=== PATIENT | male | born 1945 | race Caucasian/White ===

== ENCOUNTER 2024-08-12 13:54 | Outpatient (REF) | payer MEDICARE, OTHER, SELFPAY | END 2024-08-12 13:55 | disposition home or self-care (01) | LOC: HO.HOSX 13:54 | PROVIDERS: Visit Provider Orthopaedic Surgery | DX: Z13.89 Encounter for screening for other disorder (principal) ==

== ENCOUNTER 2024-09-03 09:55 | Outpatient (REF) | payer MEDICARE, OTHER, SELFPAY ==
--- NOTE | ~2024-09-03 | XR_ITS ---
EXAMINATION: XR KNEE RIGHT 3 VIEWS CLINICAL INFORMATION: Pain in right knee M25.561. COMPARISON: None available TECHNIQUE: Three views of the right knee. FINDINGS: No fracture or dislocation. No suprapatellar joint effusion. There is severe narrowing of the lateral joint space height with mild to moderate narrowing of the medial joint space height. Patellofemoral joint space is relatively well maintained. Small tricompartmental marginal osteophytes. No localized soft tissue swelling. No radiopaque foreign body. XR/XR knee RT 3V IMPRESSION: Moderate degenerative changes of the right knee, most prominent within the lateral compartment. Electronically signed by: Vern Hi MD 10/15/2024 09:53 AM EST
== END 2024-09-03 09:56 | disposition home or self-care (01) ==
LOC: HO.HOSX 09:55
PROVIDERS: Visit Provider Orthopaedic Surgery
DX: M25.561 Pain in right knee (principal); M17.11 Unilateral primary osteoarthritis, right knee
CPT/HCPCS: 20610; 73562; 99202; J1010; J2003

== ENCOUNTER 2024-09-03 13:48 | Outpatient (AMB) | payer MEDICARE, OTHER, SELFPAY ==
--- NOTE | 2024-09-03 14:13 | MHC.OFFVIS ---
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 Patient states he's right knee has been bothering him for about 4 months. Patient states pain is worse on the lateral aspect of the right knee. Denies numbness or tingling. He shares it is hard to go up or down the stairs. Patient states he had a right knee injection in May but is unsure on what he was given. He has tried braces, Voltaren, and Tylenol for pain with relief. Denies prior injuries or surgeries to the right knee. 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 While in the office today, the patient reports ongoing right knee pain, which has been bothering him for the past 4 months. The quality of pain is worse on the lateral aspect of the right knee. He mentions difficulty ambulating up and down the stairs. He denies numbness or tingling sensation. He previously had a right knee injection in May 2024 but was unsure what type injection he had. He has tried braces, Voltaren, and Tylenol for pain relief. He denies any prior injuries or surgeries to the right knee. [facility] Social History (Updated 09/03/24 @ 14:20 by MINNIE Hines) Current occupational status: retired Current occupation: rt handed Review of Systems Const All systems reviewed & are unremarkable except as noted in HPI and below Physical Exam Vital Signs: BMI result Body Mass Index 24.9 Const General: cooperative and no acute distress Orientation/consciousness: patient oriented x3 Resp Effort & Inspection: normal respiratory effort and able to speak in complete sentences Cardio Peripheral pulses: Peripheral pulses 2+ throughout Skin General skin exam: no rashes or lesions noted Neuro General: patient oriented x3 Extrem Other: Right knee: Normal to inspection. No ecchymosis, erythema, or joint effusion. No tenderness to palpation along the medial or lateral joint lines. Full knee extension and flexion. Crepitus is felt with ROM. NVI. Office Procedures AMB Joint Injection/Aspiration Joint Injection/Aspiration Primary Site: right knee Prep: site was prepped using aseptic technique, ethochloride spray was applied and injection warnings given Injected: 80 mg of, DepoMedrol, with 8 mL of (2% plain lido ) and in the joint Approach Used: anterolateral Procedure: The patient tolerated the procedure well, but had some pain with the injection and there was some relief with the local anesthesia Coding 24243 - Large joint Procedure code (CPT) selection complete Assessment & Plan Assessment & Plan (1) Osteoarthritis of right knee: Code(s): M17.11 - Unilateral primary osteoarthritis, right knee Category: Medical Plan Mr. Hart is a 79-year-old female who presents in the office today, as a new patient, for a right knee osteoarthritis. While in the office today, the patient reports ongoing right knee pain which has been bothering him for the past 4 months. The quality of pain is worse on the lateral aspect of the right knee. He mentions difficulty ambulating up and down the stairs. He denies numbness or tingling sensation. He previously had a right knee injection in May 2024 but was unsure what type injection he had. He has tried braces, Voltaren and Tylenol for pain with relief. He denies any prior injuries or surgeries to the right knee. The patient was offered a cortisone injection in the right knee with 80 mg of Depo-Medrol. The patient was explained the risks, benefits, and alternatives to receiving this injection. After receiving consent for the injection, the patient had the procedure done while in the office today. The patient tolerated the procedure well with no complication. Follow up will be PRN, or sooner if needed. X-rays of the right knee, which were obtained while in the office today and were reviewed by me, Renee Altman PA-C, revealed: Osteoarthritis. Orders: Orders XR knee RT 3V 09/03/24 M25.561 - Pain in right knee XR knee RT 3V 09/03/24 M25.561 - Pain in right knee Patient Instructions: Scribed by Jeanie Weiss, vice president medical affairs, for Renee Altman PA-C on 09/02/24 at 2:40 pm EST. Coding Level of Care Code New Pt Level 4 (19284) Diagnoses Osteoarthritis of right knee M17.11 CPT Codes Coding - 71921 Large joint: 45280 - Large joint ([id number])
[2024-09-03 14:15] VITALS: BMI 24.9
== END 2024-09-03 15:39 | disposition home or self-care (01) ==
PROVIDERS: PCP Hospitalist; Visit Provider Physician Assistant
DX: M17.11 Unilateral primary osteoarthritis, right knee (principal)
CPT/HCPCS: 20610; 99204

== ENCOUNTER 2025-02-11 11:11 | Outpatient (AMB) | payer MEDICARE, OTHER, SELFPAY ==
--- NOTE | 2025-02-11 11:19 | MHC.OFFVIS ---
Vital Signs 02/11/25 11:20 Height 5 ft 8 in Weight 164 lb BMI 24.9 Intake Visit Reasons: inj-right knee injection-09/03/24 Intake Note: Josep is a 80 year old male who presents with complaints of progressively worsening right knee pain. The patient describes his pain as sharp in nature. His pain has gotten worse over the last year in spite of continued non operative treatments. He did have a cortisone injection given into his right knee last year. The injection gave him minimal relief. He has failed the last 3 months of conservative treatment which have included a home exercise program, physical therapy exercises, Tylenol, topical creams and a knee brace. The patient is not able to take anti-inflammatory medicines because he is on Eliquis. At this point his right knee pain is interfering with his activities of daily living and his ability to sleep well through the night. He wishes to hold off on total knee replacement surgery for as long as possible. Allergies No Known Allergies Allergy (Verified 02/11/25 11:20) Medication List - Last Reconciled 02/11/25 by Tee Mak MD apixaban (Eliquis) 5 mg PO BID atorvastatin 40 mg PO DAILY carvedilol 12.5 mg PO BID cholecalciferol (vitamin D3) (Vitamin D3) 50 mcg PO DAILY diclofenac sodium 1% 2 grams topical QID latanoprost 0.005% drps ophthalmic (eye) lisinopril 20 mg PO DAILY timolol maleate 0.5% drps ophthalmic (eye) [facility] Social History (Updated 09/03/24 @ 14:20 by MINNIE Hines) Current occupational status: retired Current occupation: rt handed Physical Exam Vital Signs: BMI result Body Mass Index 24.9 Const Other: Well-nourished well-developed very friendly male awake alert and oriented x3 in no acute distress Extrem Other: Bilateral lower extremity examination shows good capillary refill, no skin lesions noted, normal sensation light touch Right knee examination shows a minimal effusion, palpable crepitus with range of motion, pain with range of motion, no instability Results Reviewed Results Reviewed: X-rays of the patient's right knee show joint space narrowing, subchondral sclerosis, no acute bony abnormalities Assessment & Plan Assessment & Plan (1) Osteoarthritis of right knee: Code(s): M17.11 - Unilateral primary osteoarthritis, right knee Category: Medical Plan Mr. Hart presents with progressively worsening right knee pain due to osteoarthritis. I had a lengthy discussion with the patient regarding the treatment options. Wishes to hold off on total knee replacement surgery for as long as possible. I agree with this plan. I will see whether or not his insurance company will cover a viscosupplementation injection such as Durolane. I will see him back once the injection is available. Feel free to call me at any time should questions regarding his orthopedic management arise. Thank you very much for asking me to see this very friendly gentleman. I spent 21 minutes in reviewing the patient's records and imaging studies, seeing the patient and documenting in the medical record. Coding Level of Care Code New Pt Level 3 (07743) Complex EM visit Add On G2211 Diagnoses Osteoarthritis of right knee M17.11
[2025-02-11 11:20] VITALS: BMI 24.9
--- OUTSIDE RECORDS SUMMARY | 2025-02-11 13:34 | XMS_ITS | Clinical Summary ---
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 Role Phone Unavailable Primary Care Provider Unavailabl e Social History Tobacco Use Types Packs/Day Years Used Date Smoking Tobacco: Never Assessed Sex and Gender Information Value Date Recorded Sex Assigned at Not on file Legal Sex Male 10:20 AM EST Gender Identity Not on file Sexual Orientation Not on file Plan of Treatment Health Maintenance Due Date Last Done Comments DTaP,Tdap,and Td Vaccines (1 - Tdap) 1964 Pneumococcal Vaccine: 50+ Years (1 of 1 - PCV) 01/23/1996 Zoster Vaccines (1 of 2) 01/23/1996 RSV Immunization Adult Patients (1 - 1-dose 75+ series) 2021 Cholesterol Screening (Lipid Panel) 10/07/2022 Depression Screening 10/07/2022 Falls Risk Assessment 10/07/2022 Hepatitis C Screening 10/07/2022 Social Influencers of Health Screening 10/07/2022 Medicare Annual Wellness Visit 05/13/2024 05/13/2023 COVID-19 Vaccine ( - 2023-2 5 season) 2024 Influenza Vaccine (#1) 2024 2, 08/17/2020 HIB Vaccines Aged Out No longer eligi ble based on patient's age to complete this topic HPV Vaccines Aged Out No longer eligi ble based on patient's age to complete this topic Hepatitis A Vaccines Aged Out No long er eligible based on patient's age to complete this topic Hepatitis B Vaccines Aged Out No long er eligible based on patient's age to complete this topic IPV Vaccines Aged Out No longer eligi ble based on patient's age to complete this topic MMR Vaccines Aged Out No longer eligi ble based on patient's age to complete this topic Meningococcal ACWY Vaccine Aged Out N o longer eligible based on patient's age to complete this topic Meningococcal B Vaccine Aged Out No l onger eligible based on patient's age to complete this topic RSV Immunization Patients Under 20 months Aged Out No longer eligible b ased on patient's age to complete this topic Varicella Vaccines Aged Out No longer eligible based on patient's age to complete this topic
--- OUTSIDE RECORDS SUMMARY | 2025-02-11 13:34 | XMS_ITS ---
Author Organization [facility] Address [address] [place] [address] Care Team Providers Care Head Tennis Professional Name Role Phone RAHEEL ANAYA Primary Care Provider Allergies No Known Allergies REASON FOR VISIT 6 month f/u Medications Medication SIG (Take, Route, Frequency, Duration) Notes Start Date End Date Status Amoxicillin 500 MG 1 capsule Orally every 8 hrs for 7 days 11/05/2024 Active Multi For Him Not-Ta kayode Lisinopril 20 MG 1 tablet Orally Once a day for 30 day(s) 02/05/2018 Active Timolol Maleate 0.5 % 1 drop into affected eye Ophthalmic Once a day 02/05/2018 Active Eliquis 5 MG as directed Orally 1 tablet twice a day 01/03/2021 Active Vitamin D3 50 MCG (1999) TAKE 1 CAPSULE BY MOUTH EVERY DAY for 90 Active Atorvastatin Calcium 40 MG 1 tablet Orally Once a day Active Ensure - as directed Orally One can daily Active Carvedilol 12.5 MG 1 tablet Orally twice daily 02/05/2018 Active Latanoprost 0.005 % 1 drop into affected eye in the evening Ophthalmic Once a day 02/05/2018 Active Social History Tobacco Use: Social History Observation Description Date Details (start date - stop date) Never Smoker NA - NA Tobacco Use/Smoking Question Answer Notes Are you a nonsmoker Alcohol Screen (Audit-C) Question Answer Notes Did you have a drink contain ing alcohol in the past year? Yes How often did you have a dri nk containing alcohol in the past year? 2 to 3 times a week (3 points) How many drinks did you have on a typical day when you were drinking in the past year? 1 or 2 drinks (0 point) Points 3 Interpretation Negative Vital Signs Temperature 96.3 degrees Fahrenheit 11/20/19 25 Oximetry 95 % 11/20/2024 Heart Rate 68 /min 11/20/2024 Blood pressure systolic 134 mm Hg 11/20/19 25 Blood pressure diastolic 84 mm Hg 025 Weight 168.7 lbs 11/20/2024 BMI 25.65 kg/m2 11/20/2024 Height 5'8 in 11/20/2024 Encounters Encounter Location Date Provider Diagnosis [facility] [address] [place] [address] 11/20/2024 RAHEEL ANAYA Cardiomyopathy, unspecified I42.9 ; Essential (primary) hypertension I10 ; Unspecified atrial fibrillation I48.91 and Mixed hyperlipidemia E78.2 Assessments Encounter Date Diagnosis (ICD Code) Assessment Notes Treatment Notes Treatment Clinical Notes Section Notes 11/20/2024 Cardiomyopathy, unspecified (ICD-10 - I42.9) 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 Plan is as follows Cardiomyopathy. He stable at this point and he is on beta-kellie and statins. His weight is stable. Atrial fibrillation. He is rate controlled and currently on Eliquis 5 mg 1 tablet twice a day Hyperlipidemia/hy pertension. Blood pressure well controlled on Coreg 12.5 mg twice a day and he is on Lipitor 40 mg daily. Glaucoma. Stable on current regimen and follow up with automotive glass specialist Right knee joint pain. 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 Plan is as follows Cardiomyopathy. He stable at this point and he is on beta-kellie and statins. His weight is stable. Atrial fibrillation. He is rate controlled and currently on Eliquis 5 mg 1 tablet twice a day Hyperlipidemia/hy pertension. Blood pressure well controlled on Coreg 12.5 mg twice a day and he is on Lipitor 40 mg daily. Glaucoma. Stable on current regimen and follow up with automotive glass specialist Right knee joint pain. 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 Plan is as follows Cardiomyopathy. He stable at this point and he is on beta-kellie and statins. His weight is stable. Atrial fibrillation. He is rate controlled and currently on Eliquis 5 mg 1 tablet twice a day Hyperlipidemia/hy pertension. Blood pressure well controlled on Coreg 12.5 mg twice a day and he is on Lipitor 40 mg daily. Glaucoma. Stable on current regimen and follow up with automotive glass specialist Right knee joint pain. 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 Plan is as follows Cardiomyopathy. He stable at this point and he is on beta-kellie and statins. His weight is stable. Atrial fibrillation. He is rate controlled and currently on Eliquis 5 mg 1 tablet twice a day Hyperlipidemia/hy pertension. Blood pressure well controlled on Coreg 12.5 mg twice a day and he is on Lipitor 40 mg daily. Glaucoma. Stable on current regimen and follow up with automotive glass specialist Right knee joint pain. Osteoarthritis and follow-up with orthopedic Screening blood work before next appointment Plan Of Treatment Medication Medication Name Sig Start Date Stop Date Notes Vitamin D3 50 MCG (1999) TAKE 1 CAPSU LE BY MOUTH EVERY DAY for 90 Future Test Test Name Order Date Albumin/Creatinine Ratio,Urine-[id number] Lipid Panel-[id number] 11/20/2024 Comp. Metabolic Panel ([id number] 2024 Next Appt Details Follow Up: 6 Months- Tammy JARRELL son: Provider Name:RAHEEL ANAYA , 05/28/2025 10:00:00 AM, [address] [place] [address], [id number], Progress Notes * Josep HUIZARDOB:1944 (79 yo M)Acc No.[id number]:11/20/2024 Progress Notes Patient:?Josep HUIZAR Provider:?RAHEEL ANAYA MD :1945???Age:79 Y???Sex:Male Mamadou e:11/20/2024 Address:[address] , [id number] Subjective: * Chief Complaints: * ???6 month f/u * HPI: ???Internal Medicine:?Mr. Huizar is a 79-year-old gentleman with cardiomyopathy and f/u with Dr. Jarquin at [facility], hypertension, atrial fibrillation, hearing loss on hearing aids and glaucoma here for? 6 months follow-up.? He is in his usual state of health.? He recently saw his warping machine operator and no change in medications.? He complains of right knee joint pain and he is going to follow-up with orthopedic.? He is physically active and does not complain of any exertional chest pain or pressure or shortness of breath.? There is no anxiety or depression.? He sleeps reasonably well.? No or GI issues.? No other complaints today. * ROS:?General/Constitutional:?Overall health?Good.?Change in appetite?denies.?Chills?denies.?Fever?denies.?Night sweats?denies.?Sleep disturbance?denies.?Weight gain?denies.?Weight loss?admits, 6?pounds.?Neurologic:?Difficulty speaking?denies.?Dizziness?denies.?Gait abnormality?denies.?Headache?denies.?Loss of strength?denies.?Memory loss?denies.?Seizures?denies.?Tingling/Numbness?denies.?Ophthalmologic:?Blurred vision?denies.?Discharge?denies.?Dry eye?denies.?Red eye?denies.?ENT:?Change in Voice?Denies.?Cold Symptoms?Denies.?Cough?Denies.?Dizziness?Denies.?Nasal Congestion?, Denies.?Otalgia?Denies.?postnasal drip?Denies.?Blocked ear?denies.?Nosebleed?denies.?Snoring?denies.?Cardiovascular:?Diaphoresis?Denies.?Pedal Edema?Denies.?PND (Paroxsymal nocturnal dyspnea)?Denies.?Chest pain?denies.?Difficulty laying flat?denies.?Dyspnea on exertion?denies.?Heart murmur?denies.?Orthopnea?denies.?Respiratory:?Snoring?denies.?Asthma?denies.?Cough?denies.?Shortness of breath with exertion?denies.?Sputum production?denies.?Wheezing?denies.?Gastrointestinal:?Change in bowel habits?denies.?Constipation?denies.?Decreased appetite?denies.?Diarrhea?denies.?Heartburn?denies.?Nausea?denies.?Vomiting?ashli es.?Musculoskeletal:?tingling/numbness?Denies.?myalgias?Denies.?Joint Swelling?Denies.?extremeties?normal.?Arthritis?denies.?Back problems?denies.?Carpal tunnel?denies.?Joint stiffness?denies.?Muscle aches?denies.?Endocrine:?Bowel Changes?Denies.?Breast Discharge?Denies.?poor libido?Denies.?Cold intolerance?denies.?Excessive sweating?denies.?Excessive thirst?denies.?Frequent urination?denies.?Thyroid problems?denies.?Skin:?Bruising?Denies.?Eczema?denies.?Hair changes?denies.?Rash?denies.?Skin lesion(s)?denies.?Psychiatric:?Anxiety?denies.?Depressed mood?denies.?Difficulty sleeping?denies.?Nervous breakdown?denies.?Substance abuse?denies.?Urology:?abnormal menstrual bleeding?denies.?blood in urine?denies.?burning on urination?denies.?difficulty urinating?denies.?discharge?denies.?dysuria?denies.? * Medical History:? * Surgical History:?bilateral cataract surgery by Dr. Alvarez 12/2021 * Hospitalization/Major Diagno stic Procedure:? * Family History:?Father: dece ased, Parkinsons, diagnosed with Hypertension, Heart Disease.?Mother: .?Paternal uncle: diagnosed with Heart Disease.?Siblings: diagnosed with Hypertension.? * Social History:?Tobacco Use:?Tobacco Use/Smoking?Are you a?nonsmoker ???Drugs/Alcohol:?Drugs?Have you used drugs other than those for medical reasons in the past 12 months??No ?Alcohol Screen (Audit-C)?Did you have a drink containing alcohol in the past year??Yes ?How often did you have a drink containing alcohol in the past year??2 to 3 times a week (3 points) ?How many drinks did you have on a typical day when you were drinking in the past year??1 or 2 drinks (0 point) ?Points?3 ?Interpretation?Negative ???Miscellaneous:?Exercise: Patient exercises. ?Marital status: . ?Occupation: Retired. * Medications:?TakingAtorvasta tin Calcium 40 MG Tablet 1 tablet Orally Once a day Ensure - Liquid as directed Orally , Notes to Pharmacist: One can dailyCarvedilol 12.5 MG Tablet 1 tablet Orally twice daily Latanoprost 0.005 % Solution 1 drop into affected eye in the evening Ophthalmic Once a day Lisinopril 20 MG Tablet 1 tablet Orally Once a day Timolol Maleate 0.5 % Solution 1 drop into affected eye Ophthalmic Once a day Eliquis 5 MG Tablet as directed Orally 1 tablet twice a day Vitamin D3 50 MCG (1999 [place]) Capsule TAKE 1 CAPSULE BY MOUTH EVERY DAY Amoxicillin 500 MG Capsule 1 capsule Orally every 8 hrs Taking Atorvastatin Calcium 40 MG Tablet 1 tablet Orally Once a day Taking Ensure - Liquid as directed Orally , Notes to Pharmacist: One can dailyTaking Carvedilol 12.5 MG Tablet 1 tablet Orally twice daily Taking Latanoprost 0.005 % Solution 1 drop into affected eye in the evening Ophthalmic Once a day Taking Lisinopril 20 MG Tablet 1 tablet Orally Once a day Taking Timolol Maleate 0.5 % Solution 1 drop into affected eye Ophthalmic Once a day Taking Eliquis 5 MG Tablet as directed Orally 1 tablet twice a day Taking Vitamin D3 50 MCG (2000 [place]) Capsule TAKE 1 CAPSULE BY MOUTH EVERY DAY Taking Amoxicillin 500 MG Capsule 1 capsule Orally every 8 hrs Not-TakingMulti For Him Medication List reviewed and reconciled with the patientNot-Taking Multi For Him Medication List reviewed and reconciled with the patient * Allergies:?N.K.D.A.no[Allerg ies Verified] Objective: * Vitals:?Temp: 96.3 F, Oxygen sat %: 95 %, HR: 68 /min, BP: 134/84 mm Hg, Wt: 168.7 lbs, BMI: 25.65 Index, Ht: 5'8 . * ???Past Orders: ???Lab:COMPREHENSIVE METABOL IC PANEL (Order Date - 05/13/2024) (Collection Date & Time - 05/13/2024 08:46 AM) ? Value Reference Range ?ALBUMIN 3.8 3.2-5.0 - G/ dL ?ALK PHOS 106 42-121 - U/ L ?SGPT 36 10-60 - U/L ?ANION GAP 5 3-11 - ?SGOT 24 10-42 - U/L ?BILI,TOTAL 1.2 0.0-1.4 - mg/dL ?BUN 20 5-25 - mg/dL ?CALCIUM 9.2 8.5-10.5 - m g/dL ?CHLORIDE 107 96-110 - mm ol/L ?CO2 28 21-32 - mmol/L ?CREAT 0.78 0.7-1.3 - mg/d L ?GLOMERULAR FILTRATION RATE 91 >60 - ?GLUCOSE 90 70-100 - mg/ dL ?POTASSIUM 4.4 3.5-5.5 - mmol/L ?SODIUM 140 135-145 - mEq /L ?TOTAL PROTEIN 6.7 6.0-8. 0 - G/dL ???Lab:GLYCOHEMOGLOBIN PROFI LE (Order Date - 05/13/2024) (Collection Date & Time - 05/13/2024 08:46 AM) ? Value Reference Range ?ESTIMATED AVERAGE GLUCOSE 117 - mg/dL ?GLYCATED HEMOGLOBIN A1C 5.7 <6.5 - % ???Lab:LIPID PROFILE (Order Date - 05/13/2024) (Collection Date & Time - 05/13/2024 08:46 AM) ? Value Reference Range ?CHOLESTEROL 123 0-200 - mg/dL ?HDL CHOLESTEROL 62 >40 - mg/dL ?LDL CALCULATED 53 0-100 - mg/dL ?TC-HDLC RATIO 2.0 0-4.4 - mg/dL ?TRIGLYCERIDES 42 0-150 - mg/dL ???Lab:MICROALB/CREAT RATIO, RANDOM (Order Date - 05/13/2024) (Collection Date & Time - 05/13/2024 08:46 AM) ? Value Reference Range ?CREATININE, RANDOM URINE 137 - mg/dL ?MICROALB/CRE RATIO RANDOM 8.7 0.0-30.0 - mg/G ?MICROALBUMIN, RANDOM 12.0 0.0-29.0 - mg/L ???Lab:B-TYPE NATRIURETIC PE PTIDE (Order Date - 09/05/2023) (Collection Date & Time - 09/05/2023 08:26 AM) ? Value Reference Range ?B-TYPE NATRIURETIC PEPTIDE 80 <100 - pg/mL * Examination: ???General Examination: ?Psychiatry?Normal.?GENERAL APPEARANCE:?Well developed, well nourished, in no acute distress.?MUSCULOSKELETAL:?kyphosis, decreased range of motion of right knee on flexion, crepitus positive, decreased ROM flexion, extension.?HEAD:?Normocephalic, atraumatic.?EYES:?Pupils equal, round, reactive to light and accommodation, sclera non-icteric.?EARS:?Normal.?ORAL CAVITY:?Normal.?THROAT:?Clear.?OROPHARYNX?Normal.?SINUSES?Normal .?NECK/THYROID:?Neck supple, full range of motion, no cervical lymphadenopathy.?SKIN:?Warm and dry, no suspicious lesions.?HEART:?irregularly irregular,,grade 1/6 systolic murmur at left sternal border.?LUNGS:?clear to auscultation bilaterally, no wheezes, rales, rhonchi.?BREASTS:?__.?ABDOMEN:?Soft, nontender, nondistended, bowel sounds present, normal.?EXTREMITIES:?Normal.?PERIPHERAL PULSES:?Normal.?NEUROLOGIC:?Nonfocal,? appropriate?motor strength normal upper and lower extremities, sensory exam intact.?FEMALE GENITOURINARY:?__.?MALE GENITOURINARY:?__.?PODIATRIC:?Normal.?Records Coordinator? .? Assessment: * Assessment: 1.?Cardiomyopathy, unspecifi ed - I42.9 (Primary)???2.?Essential (primary) hypertension - I10???3.?Unspecified atrial fibrillation - I48.91???4.?Mixed hyperlipidemia - E78.2??? 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 Plan is as follows Cardiomyopathy.? He stable at this point and he is on beta-kellie and statins.? His weight is stable. Atrial fibrillation.? He is rate controlled and currently on Eliquis 5 mg 1 tablet twice a day Hyperlipidemia/hypertension.? Blood pressure well controlled on Coreg 12.5 mg twice a day and he is on Lipitor 40 mg daily. Glaucoma.? Stable on current regimen and follow up with automotive glass specialist Right knee joint pain.? Osteoarthritis and follow-up with orthopedic Screening blood work before next appointment Plan: * Treatment: 2.?Others? Refill Vitamin D3 Capsule, 50 MCG (1999), TAKE 1 CAPSULE BY MOUTH EVERY DAY, 90, 90 Capsule, Refills 3.?? * Procedure Codes:?[id number] Compl ex e/m visit add [id number] ACP DISCUSS/DSCN MKR [id number] BMI<30 AND >=22 CALC & [id number] NEG SCR D PT NOT ELIG F/U/PLN [id number] ELDER MALTX SCR DOC NEG NO F/U [id number] Pt scrn tbco and id as [id number] MOST RECENT SYSTOLIC BP < 140MM [id number] MOST RECENT DIASTOLIC BP < 90MM [id number] NORMAL BP READING DOC F/U NOT RQR * Follow Up:?6 Months- AW * * Sign off status: Completed true * Provider:?RAHEEL ANAYA MD Date:?11/20 Generated for Brian mccormick/Mckenna/eTransmitting on:?02/11/2025 01:34 PM EDT History and Physical Notes * HPI (History of Present Illness) Category Sub-Category Detail Notes Category Not es Internal Medicine Mr. Alex marsh is a 79-year-old gentleman with cardiomyopathy and f/u with Dr. Jarquin at [facility], hypertension, atrial fibrillation, hearing loss on hearing aids and glaucoma here for 6 months follow-up. He is in his usual state of health. He recently saw his warping machine operator and no change in medications. He complains of right knee joint pain and he is going to follow-up with orthopedic. He is physically active and does not complain of any exertional chest pain or pressure or shortness of breath. There is no anxiety or depression. He sleeps reasonably well. No or GI issues. No other complaints today Examination Category Sub-Category Detail Notes Category Not es General Examination GENERAL APPEARANCE: Well dev eloped, well nourished, in no acute distress HEAD: Normocephalic, atrau matic EYES: Pupils equal, round, reactive to light and accommodation, sclera non-icteric EARS: Normal THROAT: Clear NECK/THYROID: Neck supple, full ra nge of motion, no cervical lymphadenopathy HEART: irregularly irregula r, , grade 1/6 systolic murmur at left sternal border LUNGS: clear to auscultatio n bilaterally, no wheezes, rales, rhonchi ABDOMEN: Soft, nontender, non distended, bowel sounds present, normal NEUROLOGIC: Nonfocal, appropriat e motor strength normal upper and lower extremities, sensory exam intact SKIN: Warm and dry, no arleen picious lesions EXTREMITIES: Normal PERIPHERAL PULSES: Normal BREASTS: __ MUSCULOSKELETAL: kyphosis, decreased range of motion of right knee on flexion, crepitus positive, decreased ROM flexion, extension MALE GENITOURINARY: __ FEMALE GENITOURINARY: __ ORAL CAVITY: Normal PODIATRIC: Normal Psychiatry Normal OROPHARYNX Normal SINUSES Normal Records Coordinator
--- OUTSIDE RECORDS SUMMARY | 2025-02-11 13:34 | XMS_ITS | Data Portability ---
Author Organization [place] - [facility], Allergy Address [address] [place] [address] Care Team Providers Care Environmental Engineering Intern Name Role Phone RAHEEL ANAYA Primary Care Provider Assessment No assessment recorded. Plan of Treatment Reminders Order Date Submit Date Provider Last Modified By Organization Details Last Modified Time Details Appointments Establish ed 15 2024 10:00A M PRISCILA MCCLURE PA-C Not available Not available Not available Lab None recorded. Referral None recorded. Procedures None recorded. Surgeries None recorded. Imaging None recorded. Medication Orders None recorded. Patient TargetsNo targets recorded. Patient InstructionsNo instructions recorded. Reason for Referral None Reported. Problems Name Problem SNOMED Code Status Onset Date Resolution Date Notes Provider Name and Address Organization Details Recorded Time Otorrhagi a of bilateral ears 25541638913 [id number] Active 2022 Otorrhagi a, bilateral ; Note: Date Diagnosed : 09/07/2023 9:46 AM (H92.23) Not Available [facility] 02:55:23 Abrasion of skin of right ear [id number] 681214 Active 2015 Abrasion of right ear, initial encounter ; Note: Date Diagnosed : 03/25/2016 11:04 AM (S00.411A ) Not Available [facility] 02:55:19 Impacted cerumen of bilateral ears 18802781003 60797 Active 2023 TOD PAVON MD [address] [facility],[place] [address], [place], [address] , [place] [facility] 09:09:22 Problem Notes None recorded. Procedures Surgical History Date Name Laterality Status Provider Name and Address Organization Details Recorded Time extraction of cataract completed TOD PAVON MD [address] [facility],[address], [address], [facility] 09/11/2024 09:41:02 hernia repair completed [facility] [place],[address], [address], [place] [facility] 09/11/2024 09:41:07 Appendectomy completed TOD PAVON MD [address] [facility],[address], [address], [facility] 09/11/2024 09:41:14 Imaging Results None recorded. Procedure Notes None recorded. Medical Equipment None Reported. Allergies No known drug allergies Medications Name Sig Start Date Stop Date Status Note LastModified by Organization Details LastModified Time latanopro st 0.005 % eye drops INSTILL 1 DROP INTO BOTH EYES IN THE EVENING active Not Available Not Available No t Available atorvasta tin 40 mg tablet TAKE 1 TABLET BY MOUTH EVERY DAY active Not Available Not Available No t Available carvedilo l 12.5 mg tablet TAKE 1 TABLET BY MOUTH TWICE A DAY active Not Available Not Available No t Available lisinopri l 20 mg tablet TAKE 1 TABLET BY MOUTH EVERY DAY active Not Available Not Available No t Available warfarin 2.5 mg tablet 09/11 completed Medicati on ID: [id number] D uration Value: 90 Brand Name: warfarin Send Method: E-Prescr ibed Sub s Allowed: subs OK Speci al Instruct ion: TAKE 3 TABLETS BY MOUTH FOR 5 DAYS/WEE K AND 2 TABLETS 1 DAY/WEEK . *1 D AY/WEEK NO DOSE TO BE TAKEN* M edicatio nGeneric Name: warfarin Not Available Not Available Not Available Ciloxan 0.3 % eye drops 09/11 completed Medicati on ID: [id number] D uration Value: 5 Prescri bed By Name: Tod fonseca MD Brand Name: Ciloxan Send Method: E-Prescr ibed Sub s Allowed: subs OK Speci al Instruct ion: Instill 4 drops twice a day into the affected ear Medi cationGe nericNam e: Ciloxan Not Available Not Available Not Available ofloxacin 0.3 % ear drops Apply 5 drop into both ears twice a day 09/11 completed Medicati on ID: [id number] D uration Value: 7 Brand Name: ofloxaci n Send Method: E-Prescr ibed Sub s Allowed: subs OK Medic ationGen ericName : ofloxaci n Not Available Not Available Not Available timolol maleate 0.5 % eye drops INSTILL 1 DROP INTO BOTH EYES ONCE A DAY active Not Available Not Available No t Available lisinopri l 40 mg tablet 09/11 completed Medicati on ID: [id number] D uration Value: 90 Brand Name: lisinopr il Send Method: E-Prescr ibed Sub s Allowed: subs OK Speci al Instruct ion: TAKE 1 TABLET BY MOUTH EVERY DAY Medi cationGe nericNam e: lisinopr il Not Available Not Available Not Available Vitamin D3 50 mcg (2,000 unit) capsule TAKE 1 CAPSULE BY MOUTH EVERY DAY active Not Available Not Available No t Available Eliquis 5 mg tablet TAKE 1 TABLET BY MOUTH TWICE A DAY active Not Available Not Available No t Available Paxlovid 300 mg (150 mg x 2)-100 mg tablets in a dose pack TAKE 3 TABLETS BY MOUTH TWICE A DAY FOR 5 DAYS 09/11 completed Not Available Not Available Not Available Vitals Date Recorded Body height Body mass index (BMI) Body weight Provider Name and Address Organization Details Last Updated DateTime 09/11/2024 172.72 cm 24.8 kg/m2 81234.56 g Leandra Doe [place] - [facility] 09/11/2024 08:55:59 Social History None recorded. Functional Status None recorded. Mental Status None recorded. Family History Nothing Reported Notes:Problems with anesthes ia: negative. Cancer:. ? Pertinent negatives: lung cancer, thyroid cancer, unknown type of cancer. Ears: Hearing loss after age 20 - father and sister(s). Cardiovascular: Heart disease in a male, diagnosed at unknown age - father. Heart disease in a female, diagnosed at unknown age - mother. Hypertension - father and brother(s). Respiratory:. ? Pertinent negatives: asthma. Neurologic:. ? Pertinent negatives: stroke. Endocrine:. ? Pertinent negatives: diabetes (age at onset unspecified). Hematologic/Lymphatic:. ? Pertinent negatives: bleeding or blood clotting problems. Medical History Condition Response Arthritis Y Hypertension Y Glaucoma Y Past Encounters Encounter ID Performer Location Encounter Start Date Encounter Closed Date Diagnosis/Indication Diagnosis SNOMED-CT Code Diagnosis ICD10 Code Diagnosis Note [id number] TOD PAVON MD [facility] [address] [address] 09/11/2024 08:49:31 09/11/2024 09:12:46 Impacted cerumen of bilateral ears [id number] 625366 H61.23 Cerumen removed bilaterall y and tolerated well. Follow-up in a year. Health Concerns Section Related Observation LastModified by Organization Detai ls LastModified Time None Recorded Concern Status LastModified by Organization Details LastModified Time None Recorded Advance Directives Directive None Recorded Payers Encounter Date Sequence Insurance Name Policy Number Policy Saha Covered Member ID Saha Member ID Guarantor Name 09/11/2024 1 [place]IC[place] [employer] Josep Hart [id number] Josep Hart 09/11/2024 2 [facility] INDEMNITY PLAN (MEDICARE SUPPLEMENT) [id number] Marichuy Hart [id number] Josep Hart Notes Date Note Type Note Provider Name and Address Organization Details Recorded Time 09/11/2024 text/html 79-year-old male presents today for follow-up. He was seen about a year ago after traumatic ear cleaning. He has done well since then. He does not feel any particular blockage. He does wear amplification for his severe hearing loss. Since his last visit, he did have a injection for some arthritis in his knee. TOD PAVON MD [address] [place] [address], [phone], [facility] - [facility] 09/11/2024 09:42:09
--- OUTSIDE RECORDS SUMMARY | 2025-02-11 13:34 | XMS_ITS ---
Author Organization [facility] Address [address] [facility] [place] [address] Care Team Providers Care Rod Piler Name Role Phone RAHEEL ANAYA Primary Care Provider Juan Munguia Unavailable [phone] Allergies No Known Allergies REASON FOR VISIT ? Sinus infection Medications Medication SIG (Take, Route, Frequency, Duration) Notes Start Date End Date Status Lisinopril 20 MG 1 tablet Orally Once a day for 30 day(s) 02/05/2018 Active Vitamin D3 50 MCG (1999) TAKE 1 CAPSULE BY MOUTH EVERY DAY for 90 Active Eliquis 5 MG as directed Orally 1 tablet twice a day 01/03/2021 Active Timolol Maleate 0.5 % 1 drop into affected eye Ophthalmic Once a day 02/05/2018 Active Latanoprost 0.005 % 1 drop into affected eye in the evening Ophthalmic Once a day 02/05/2018 Active Amoxicillin 500 MG 1 capsule Orally every 8 hrs for 7 days 11/05/2024 Active Carvedilol 12.5 MG 1 tablet Orally twice daily 02/05/2018 Active Ensure - as directed Orally One can daily Active Atorvastatin Calcium 40 MG 1 tablet Orally Once a day Active Multi For Him Cody-Andrea headley Vital Signs Temperature 97.3 degrees Fahrenheit 11/05/19 25 Oximetry 96 % 11/05/2024 Heart Rate 90 /min 11/05/2024 Blood pressure systolic 124 mm Hg 11/05/19 25 Blood pressure diastolic 70 mm Hg 025 Weight 167.7 lbs 11/05/2024 BMI 25.5 kg/m2 11/05/2024 Height 5'8 in 11/05/2024 Encounters Encounter Location Date Provider Diagnosis [facility] [address] [address] 11/05/2024 Juan Munguia Acute sinusitis, unspecified J01.90 Assessments Encounter Date Diagnosis (ICD Code) Assessment Notes Treatment Notes Treatment Clinical Notes Section Notes 11/05/2024 Acute sinusitis, unspecified (ICD-10 - J01.90) Mr. Huizar is a 79-year-old gentleman with cardiomyopathy and f/u with Dr. Jarquin at [facility], hypertension, atrial fibrillation, hearing loss on hearing aids and glaucoma here for sinus infections sxs. Plan as follows: Acute Sinusitis: - Worsening sxs over the course of 7 days. He admits to nasal congestion/purule nt mucus. PE is remarkable for tenderness along the maxillary sinuses. Lungs CTAB. I will start patient on amoxicillin. 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 Instead advised on Tylenol for pain, Normal saline, hydration. I have rendered the services for this patient under direct supervision of Dr. Anaya, who did not see the patient but was available upon request Plan Of Treatment Medication Medication Name Sig Start Date Stop Date Notes Amoxicillin 500 MG 1 capsule Orally every 8 hrs for 7 days 11/05/2024 Next Appt Details Follow Up: next appt, Reason : Provider Name:RAHEEL ANAYA , 05/28/2025 10:00:00 AM, [address] [facility] [address], [place], [address], Progress Notes * Josep HUIZARDOB:1944 (79 yo M)Acc No.[id number]:11/05/2024 Patient:?Josep HUIZAR Provider:?Juan Munguia :1945???Age:79 Y???Sex:Male Mamadou e:11/05/2024 Address:[address] [id number] Pcp:RAHEEL ANAYA Subjective: * Chief Complaints: * ? Sinus infection * HPI: ???Internal Medicine:?Mr. Huizar is a 79-year-old gentleman with cardiomyopathy and f/u with Dr. Jarquin at [facility], hypertension, atrial fibrillation, hearing loss on hearing aids and glaucoma here for sinus infections sxs. He states that his symptoms have been worsening for the past week. He has tried OTC with no improvement. He admits to facial pain, nasal congestion with purulent runny nose. He denies fever, chills, ear pain, dysphagia, odynophagia.He denies any active issues. * ROS:?General/Constitutional:?Overall health?Good.?Change in appetite?denies.?Chills?denies.?Fever?denies.?Night sweats?denies.?Sleep disturbance?denies.?Weight gain?denies.?Weight loss?admits, 6?pounds.?Neurologic:?Difficulty speaking?denies.?Dizziness?denies.?Gait abnormality?denies.?Headache?denies.?Loss of strength?denies.?Memory loss?denies.?Seizures?denies.?Tingling/Numbness?denies.?Ophthalmologic:?Blurred vision?denies.?Discharge?denies.?Dry eye?denies.?Red eye?denies.?ENT:?Change in Voice?Denies.?Cold Symptoms?Denies.?Cough?Denies.?Dizziness?Denies.?Nasal Congestion?Admits.?Otalgia?Denies.?postnasal drip?Denies.?Patient complaining of?worsening facial pain.?Blocked ear?denies.?Nosebleed?denies.?Snoring?denies.?Cardiovascular:?Diaphoresis?Denies.?Pedal Edema?Denies.?PND (Paroxsymal nocturnal dyspnea)?Denies.?Chest pain?denies.?Difficulty laying flat?denies.?Dyspnea on exertion?denies.?Heart murmur?denies.?Orthopnea?denies.?Respiratory:?Snoring?denies.?Asthma?denies.?Cough?denies.?Shortness of breath with exertion?denies.?Sputum production?denies.?Wheezing?denies.?Gastrointestinal:?Change in bowel habits?denies.?Constipation?denies.?Decreased appetite?denies.?Diarrhea?denies.?Heartburn?denies.?Nausea?denies.?Vomiting?ashli es.?Musculoskeletal:?tingling/numbness?Denies.?myalgias?Denies.?Joint Swelling?Denies.?extremeties?normal.?Arthritis?denies.?Back problems?denies.?Carpal tunnel?denies.?Joint stiffness?denies.?Muscle aches?denies.?Endocrine:?Bowel Changes?Denies.?Breast Discharge?Denies.?poor libido?Denies.?Cold intolerance?denies.?Excessive sweating?denies.?Excessive thirst?denies.?Frequent urination?denies.?Thyroid problems?denies.?Skin:?Bruising?Denies.?Eczema?denies.?Hair changes?denies.?Rash?denies.?Skin lesion(s)?denies.?Psychiatric:?Anxiety?denies.?Depressed mood?denies.?Difficulty sleeping?denies.?Nervous breakdown?denies.?Substance abuse?denies.?Urology:?abnormal menstrual bleeding?denies.?blood in urine?denies.?burning on urination?denies.?difficulty urinating?denies.?discharge?denies.?dysuria?denies.? * Medical History:? * Medications:?TakingAtorvasta tin Calcium 40 MG Tablet [...] 1 CAPSULE BY MOUTH EVERY DAY Taking Atorvastatin Calcium 40 MG Tablet 1 [...] a day Taking Vitamin D3 50 MCG (1999 [place]) Capsule TAKE 1 CAPSULE BY MOUTH EVERY DAY Not-TakingMulti For Him Not-Taking Multi For Him DiscontinuedPaxlovid (300/100) 20 x 150 MG & 10 x 100MG Tablet Therapy Pack 3 tablets Orally Twice a day Medication List reviewed and reconciled with the patientDiscontinued Paxlovid (300/100) 20 x 150 MG & 10 x 100MG Tablet Therapy Pack 3 tablets Orally Twice a day Medication List reviewed and reconciled with the patient * Allergies:?N.K.D.A.no[Allerg ies Verified] Objective: * Vitals:?Temp: 97.3 F, Oxygen sat %: 96 %, HR: 90 /min, BP: 138/78 mm Hg, 124/70 mm Hg, Wt: 167.7 lbs, BMI: 25.5 Index, Ht: 5'8 . * Examination: ???General Examination: ?Psychiatry?Normal.?GENERAL APPEARANCE:?Well developed, well nourished, in no acute distress.?MUSCULOSKELETAL:?kyphosis, decreased range of motion of right knee on flexion, crepitus positive, decreased ROM flexion, extension.?HEAD:?Normocephalic, atraumatic.?EYES:?Pupils equal, round, reactive to light and accommodation, sclera non-icteric.?EARS:?Normal.?ORAL CAVITY:?Normal.?THROAT:?Clear.?OROPHARYNX?Normal.?SINUSES?tender to palpate around the maxillary sinuses.?NECK/THYROID:?Neck supple, full range of motion, no cervical lymphadenopathy.?SKIN:?Warm and dry, no suspicious lesions.?HEART:?irregularly irregular,,grade 1/6 systolic murmur at left sternal border.?LUNGS:?clear to auscultation bilaterally, no wheezes, rales, rhonchi.?BREASTS:?__.?ABDOMEN:?Soft, nontender, nondistended, bowel sounds present, normal.?EXTREMITIES:?Normal.?PERIPHERAL PULSES:?Normal.?NEUROLOGIC:?Nonfocal,? appropriate?motor strength normal upper and lower extremities, sensory exam intact.?FEMALE GENITOURINARY:?__.?MALE GENITOURINARY:?__.?PODIATRIC:?Normal.?Dental Cream Maker? .? Assessment: * Assessment: 1.?Acute sinusitis, unspecif ied - J01.90 (Primary)??? Mr. Huizar is a 79-year-old gentleman with cardiomyopathy and f/u with Dr. Jarquin at [facility], hypertension, atrial fibrillation, hearing loss on hearing aids and glaucoma here for sinus infections sxs. Plan as follows: Acute Sinusitis: - Worsening sxs over the course of 7 days. He admits to nasal congestion/purulent mucus. PE is remarkable for tenderness along the maxillary sinuses. Lungs CTAB. I will start patient on amoxicillin. 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 Instead advised on Tylenol for pain, Normal saline, hydration. I have rendered the services for this patient under direct supervision of Dr. Anaya, who did not see the patient but was available upon request Plan: * Treatment: * Procedure Codes:? * Follow Up:?next appt * * Sign off status: Completed true * Provider:?Juan Munguia Date:?11/05/19 25 Generated for Brian mccormick/Mckenna/Demetris on:?02/11/2025 01:34 PM EDT History and Physical Notes * HPI (History of Present Illness) Category Sub-Category Detail Notes Category Not es Internal Medicine Mr. Alex marsh is a 79-year-old gentleman with cardiomyopathy and f/u with Dr. Jarquin at [facility], hypertension, atrial fibrillation, hearing loss on hearing aids and glaucoma here for sinus infections sxs. He states that his symptoms have been worsening for the past week. He has tried OTC with no improvement. He admits to facial pain, nasal congestion with purulent runny nose. He denies fever, chills, ear pain, dysphagia, odynophagia.He denies any active issues. Examination Category Sub-Category Detail Notes Category Not [...] PODIATRIC: Normal Psychiatry Normal OROPHARYNX Normal SINUSES tender to palpate ar ound the maxillary sinuses Dental Cream Maker
--- OUTSIDE RECORDS SUMMARY | 2025-02-11 13:34 | XMS_ITS ---
Author Organization [facility] Address [address] [facility] [address] [place] [address] Care Team Providers Care Shell Press Operator Name Role Phone RAHEEL ANAYA Primary Care Provider REASON FOR VISIT medication inquiry Encounters Encounter Location Date Provider Diagnosis [facility] [address] [facility] [address] [place] [address] 11/05/2024 RAHEEL ANAYA Plan Of Treatment Next Appt Details Provider Name:RAHEEL ANAYA , 05/28/2025 10:00:00 AM, [address] [facility] [address], [place], [address], Progress Notes * Josep HUIZARDOB:1944 (79 yo M)Acc No.[id number]:11/05/2024 Patient:?Josep HUIZAR :1945???Age:79 Y???Sex:Male Address[address] [place] [address] * true * Date:? Generated for Printi anny/Mckenna/eTransmitting on:?02/11/2025 01:33 PM EDT
--- OUTSIDE RECORDS SUMMARY | 2025-02-11 13:34 | XMS_ITS | Patient Health Record ---
Author Organization [facility] Address [address] [place] [address] Care Team Providers Care Cardiovascular Surgeon Name Role Phone RAHEEL ANAYA Primary Care Provider [phone] GhanshyamyudiJuan ernst Unavailable [phone] Allergies No Known Allergies Results Component Value Reference Range Notes MICROALB/CREAT RATIO, RANDOM Reviewed date:05/13/2024 12:18:44 PM Interpretation: Performing Lab: Notes/Report: Original Ordering Provider: RAHEEL ANAYA MD [employer], a member of [address] [address] [employer] - Gilda Viveros MD MICROALBUMIN, RANDOM 12.0 0.0-29.0 mg/L MICROALB/CRE RATIO RANDOM 8.7 0.0-30.0 mg/G CREATININE, RANDOM URINE 137 LIPID PROFILE Reviewed date:05/13/2024 12:18:39 PM Interpretation: Performing Lab: Notes/Report: [employer], a member of [address] [address] [employer] - Gilda Viveros MD CHOLESTEROL 123 0-200 mg/dL TRIGLYCERIDES 42 0-150 mg/dL HDL CHOLESTEROL 62 >40 mg/dL LDL CALCULATED 53 0-100 mg/dL TC-HDLC RATIO 2.0 0-4.4 mg/dL GLYCOHEMOGLOBIN PROFILE Reviewed date:05/13/2024 04:34:30 PM Interpretation: Performing Lab: Notes/Report: Original Ordering Provider: RAHEEL ANAYA MD [employer], a member of [address] [address] [employer] - Gilda Viveros MD GLYCATED HEMOGLOBIN A1C 5.7 <6.5 % ESTIMATED AVERAGE GLUCOSE 117 COMPREHENSIVE METABOLIC PANE L Reviewed date:05/13/2024 12:18:41 PM Interpretation: Performing Lab: Notes/Report: Original Ordering Provider: RAHEEL ANAYA MD GLUCOSE 90 70-100 mg/dL Reference range applicable to fasting specimens only BUN 20 5-25 mg/dL CREAT 0.78 0.7-1.3 mg/dL GLOMERULAR FILTRATION RATE 91 >60 This eGFR result was calculated using the CKD-EPI 2020 Creatinine Equation SODIUM 140 135-145 mEq/L POTASSIUM 4.4 3.5-5.5 mmol/L CHLORIDE 107 96-110 mmol/L CO2 28 21-32 mmol/L ANION GAP 5 3-11 CALCIUM 9.2 8.5-10.5 mg/dL TOTAL PROTEIN 6.7 6.0-8.0 G/dL ALBUMIN 3.8 3.2-5.0 G/dL BILI,TOTAL 1.2 0.0-1.4 mg/dL SGOT 24 10-42 U/L SGPT 36 10-60 U/L ALK PHOS 106 42-121 U/L Medications Medication SIG (Take, Route, Frequency, Duration) Notes Start Date End Date Status Amoxicillin 500 MG 1 capsule Orally every 8 hrs for 7 days 11/05/2024 Active Multi For Him Not-Ta kayode Lisinopril 20 MG 1 tablet Orally Once a day for 30 day(s) 02/05/2018 Active Vitamin D3 50 MCG (1999 UT) TAKE 1 CAPSULE BY MOUTH EVERY DAY for 90 Active Timolol Maleate 0.5 % 1 drop into affected eye Ophthalmic Once a day 02/05/2018 Active Eliquis 5 MG as directed Orally 1 tablet twice a day 01/03/2021 Active Atorvastatin Calcium 40 MG 1 tablet Orally Once a day Active Ensure - as directed Orally One can daily Active Carvedilol 12.5 MG 1 tablet Orally twice daily 02/05/2018 Active Latanoprost 0.005 % 1 drop into affected eye in the evening Ophthalmic Once a day 02/05/2018 Active Immunizations Vaccine Route Administration Date Status Comme nts COVID Moderna Unknown 12/02/2020 Administered COVID Moderna Unknown 12/30/2020 Administered COVID Moderna Unknown 09/13/2021 Administered COVID Moderna Unknown 05/31/2022 Administered COVID-19 Pfizer Unknown 10/14/2022 Administered Flu Unknown 09/16/2023 Administered Influenza, high dose seasonal Unknown 08/27/2018 Admini laura at [facility] Influenza, high dose seasonal Unknown 08/27/2018 Admini laura at [facility] Social History Tobacco Use: Social History Observation [...] drinks (0 point) Points 3 Interpretation Negative Problems Problem Type SNOMED Code ICD Code Onset Dates Problem Status W/U Status Risk Notes Problem Thrombophilia (713163515) Other thrombophilia (D68.69) Active confirmed Problem Mixed hyperlipidemia (143341824) Mixed hyperlipidemia (E78.2) Active confirmed Problem Glaucoma (84352729) Unspecified glaucoma (H40.9) Active confirmed Problem Cardiomyopathy (95849311) Cardiomyopathy, unspecified (I42.9) Active confirmed Problem Atrial fibrillation (85727569) Unspecified atrial fibrillation (I48.91) Active confirmed Problem Unspecified kyphosis, 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) Active confirmed Problem Age-related osteoporosis (534502565) Age-related osteoporosis without current pathological fracture (M81.0) Active confirmed Problem Impaired fasting glucose (315332373) Impaired fasting glucose (R73.01) Active confirmed Problem Adult health examination (177250336) Encounter for general adult medical examination without abnormal findings (Z00.00) Active confirmed Problem Essential hypertension (46854519) Essential (primary) hypertension (I10) Active confirmed Vital Signs Heart Rate 68 /min 11/20/2024 Temperature 96.3 degrees Fahrenheit 11/20/2024 Blood pressure diastolic 84 mm Hg 11/20/2024 Oximetry 95 % 11/20/2024 Height 5'8 in 11/20/2024 Blood pressure systolic 134 mm Hg 11/20/2024 Weight 168.7 lbs 11/20/2024 BMI 25.65 kg/m2 11/20/2024 Encounters Encounter Location Date Provider Diagnosis [address] [place] [address] 05/20/2024 RAHEEL MANN Encounter for genera l adult medical examination without abnormal findings Z00.00 ; Essential (primary) hypertension I10 ; Unspecified atrial fibrillation I48.91 ; Cardiomyopathy, unspecified I42.9 ; Unspecified glaucoma H40.9 ; Unspecified kyphosis, thoracic region M40.204 and Mixed hyperlipidemia E78.[address] [place] [address] 11/05/2024 Juan Munguia Acute sinusitis, unspecified J01.[address] [place] [address] 11/20/2024 RAHEEL MANN Cardiomyopathy, unspecified I42.9 ; Essential (primary) hypertension I10 ; Unspecified atrial fibrillation I48.91 and Mixed hyperlipidemia E78.[address] [place] [address] 08/12/[address] [place] [address] 10/07/[address] [address] 11/05/2024 RAHEEL MANN Assessments Encounter Date Diagnosis (ICD Code) Assessment Notes Treatment Notes Treatment Clinical Notes Section Notes 11/05/2024 Acute sinusitis, unspecified (ICD-10 - J01.90) Mr. Hart is a 79-year-old gentleman with cardiomyopathy and f/u with Dr. Jarquin at [facility], hypertension, atrial fibrillation, hearing loss on hearing aids and glaucoma here for sinus infections sxs. Plan as follows: Acute Sinusitis: - Worsening sxs over the course of 7 days. He admits to nasal congestion/purulen t mucus. PE is remarkable for tenderness along the maxillary sinuses. Lungs CTAB. I will start patient on amoxicillin. 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 Instead advised on Tylenol for pain, Normal saline, hydration. I have rendered the services for this patient under direct supervision of Dr. 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 Plan is as follows Cardiomyopathy. He stable at this point and he is on beta-kellie and statins. His weight is stable. Atrial fibrillation. He is rate controlled and currently on Eliquis 5 mg 1 tablet twice a day Hyperlipidemia/hyp ertension. Blood pressure well controlled on Coreg 12.5 mg twice a day and he is on Lipitor 40 mg daily. Glaucoma. Stable on current regimen and follow up with campus wellness coordinator Right knee joint pain. Osteoarthritis and follow-up with orthopedic Screening blood work before next appointment 05/20/2024 Encounter for general adult medical examination without abnormal findings (ICD-10 - Z00.00) Mr. Hart is a 79-year-old gentleman with cardiomyopathy and f/u with Dr. Jarquin at [facility], hypertension, atrial fibrillation, hearing loss on hearing aids and glaucoma here for Medicare annual wellness visit. Plan is as follows: Cardiomyopathy/Atr ial fibrillation. He is rate-controlled and in sinus rhythm. He is on Eliquis 5 MG twice a day and he sees Dr. Jarquin. EKG is normal sinus rhythm at 60 bpm with no acute ST or T wave changes, no bundle-branch blocks, normal intervals Hypertension. Blood pressure well controlled on current regimen. Hyperlipidemia. Last lipid panel within normal limits. Continue on current regimen. Knee pain. Referred to physical therapy plan he will call Dr. Ojeda office for intra-articular injection Eye screening. She sees her campus wellness coordinator regularly. Dental screening. She sees dentist regularly. Osteoporosis screening. he is up to date on BMD. Immunizations. She is up-to-date on her COVID, influenza vaccinations. His Marichuy is his healthcare proxy and is full code General health concerns discussed with patient. Scribe services used to formulate this note under HIPAA compliance and under [place] law mandated for scribe services. Patient aware of service. Verbal consent and written consent taken from the patient. Patient understands and verbalizes understanding of the scribes services and all questions answered regarding scribes services. Patient agrees to use of scribes services. 05/20/2024 Essential (primary) hypertension (ICD-10 - I10) Mr. Hart is a 79-year-old gentleman with cardiomyopathy and f/u with Dr. Jarquin at [facility], hypertension, atrial fibrillation, hearing loss on hearing aids and glaucoma here for Medicare annual wellness visit. Plan is as follows: Cardiomyopathy/Atr ial fibrillation. He is rate-controlled and in sinus rhythm. He is on Eliquis 5 MG twice a day and he sees Dr. Jarquin. EKG is normal sinus rhythm at 60 bpm with no acute ST or T wave changes, no bundle-branch blocks, normal intervals Hypertension. Blood pressure well controlled on current regimen. Hyperlipidemia. Last lipid panel within normal limits. Continue on current regimen. Knee pain. Referred to physical therapy plan he will call Dr. Ojeda office for intra-articular injection Eye screening. She sees her campus wellness coordinator regularly. Dental screening. She sees dentist regularly. Osteoporosis screening. he is up to date on BMD. Immunizations. She is up-to-date on her COVID, influenza vaccinations. His Marichuy is his healthcare proxy and is full code General health concerns discussed with patient. Scribe services used to formulate this note under HIPAA compliance and under [place] law mandated for scribe services. Patient aware of service. Verbal consent and written consent taken from the patient. Patient understands and verbalizes understanding of the scribes services and all questions answered regarding scribes services. Patient agrees to use of scribes services. 05/20/2024 Unspecified atrial fibrillation (ICD-10 - I48.91) Mr. Hart is a 79-year-old gentleman with cardiomyopathy and f/u with Dr. Jarquin at [facility], hypertension, atrial fibrillation, hearing loss on hearing aids and glaucoma here for Medicare annual wellness visit. Plan is as follows: Cardiomyopathy/Atr ial fibrillation. He is rate-controlled and in sinus rhythm. He is on Eliquis 5 MG twice a day and he sees Dr. Jarquin. EKG is normal sinus rhythm at 60 bpm with no acute ST or T wave changes, no bundle-branch blocks, normal intervals Hypertension. Blood pressure well controlled on current regimen. Hyperlipidemia. Last lipid panel within normal limits. Continue on current regimen. Knee pain. Referred to physical therapy plan he will call Dr. Ojeda office for intra-articular injection Eye screening. She sees her campus wellness coordinator regularly. Dental screening. She sees dentist regularly. Osteoporosis screening. he is up to date on BMD. Immunizations. She is up-to-date on her COVID, influenza vaccinations. His Marichuy is his healthcare proxy and is full code General health concerns discussed with patient. Scribe services used to formulate this note under HIPAA compliance and under [place] law mandated for scribe services. Patient aware of service. Verbal consent and written consent taken from the patient. Patient understands and verbalizes understanding of the scribes services and all questions answered regarding scribes services. Patient agrees to use of scribes services. 11/20/2024 Essential (primary) hypertension (ICD-10 - I10) Ernie is 79 years old [facility] and history of cardiomyopathy, atrial fibrillation, hyperlipidemia, glaucoma is here for follow-up. Plan is as follows Cardiomyopathy. He stable at this point and he is on beta-kellie and statins. His weight is stable. Atrial fibrillation. He is rate controlled and currently on Eliquis 5 mg 1 tablet twice a day Hyperlipidemia/hyp ertension. Blood pressure well controlled on Coreg 12.5 mg twice a day and he is on Lipitor 40 mg daily. Glaucoma. Stable on current regimen and follow up with campus wellness coordinator Right knee joint pain. Osteoarthritis and follow-up with orthopedic Screening blood work before next appointment 11/20/2024 Unspecified atrial fibrillation (ICD-10 - I48.91) Ernie is 79 years old retired [facility] and history of cardiomyopathy, atrial fibrillation, hyperlipidemia, glaucoma is here for follow-up. Plan is as follows Cardiomyopathy. He stable at this point and he is on beta-kellie and statins. His weight is stable. Atrial fibrillation. He is rate controlled and currently on Eliquis 5 mg 1 tablet twice a day Hyperlipidemia/hyp ertension. Blood pressure well controlled on Coreg 12.5 mg twice a day and he is on Lipitor 40 mg daily. Glaucoma. Stable on current regimen and follow up with campus wellness coordinator Right knee joint pain. Osteoarthritis and follow-up with orthopedic Screening blood work before next appointment 05/20/2024 Cardiomyopathy, unspecified (ICD-10 - I42.9) Mr. Hart is a 79-year-old gentleman with cardiomyopathy and f/u with Dr. Jarquin at [facility], hypertension, atrial fibrillation, hearing loss on hearing aids and glaucoma here for Medicare annual wellness visit. Plan is as follows: Cardiomyopathy/Atr ial fibrillation. He is rate-controlled and in sinus rhythm. He is on Eliquis 5 MG twice a day and he sees Dr. Jarquin. EKG is normal sinus rhythm at 60 bpm with no acute ST or T wave changes, no bundle-branch blocks, normal intervals Hypertension. Blood pressure well controlled on current regimen. Hyperlipidemia. Last lipid panel within normal limits. Continue on current regimen. Knee pain. Referred to physical therapy plan he will call Dr. Ojeda office for intra-articular injection Eye screening. She sees her campus wellness coordinator regularly. Dental screening. She sees dentist regularly. Osteoporosis screening. he is up to date on BMD. Immunizations. She is up-to-date on her COVID, influenza vaccinations. His Marichuy is his healthcare proxy and is full code General health concerns discussed with patient. Scribe services used to formulate this note under HIPAA compliance and under [place] law mandated for scribe services. Patient aware of service. Verbal consent and written consent taken from the patient. Patient understands and verbalizes understanding of the scribes services and all questions answered regarding scribes services. Patient agrees to use of scribes services. 05/20/2024 Unspecified glaucoma (ICD-10 - H40.9) Mr. Hart is a 79-year-old gentleman with cardiomyopathy and f/u with Dr. Jarquin at [facility], hypertension, atrial fibrillation, hearing loss on hearing aids and glaucoma here for Medicare annual wellness visit. Plan is as follows: Cardiomyopathy/Atr ial fibrillation. He is rate-controlled and in sinus rhythm. He is on Eliquis 5 MG twice a day and he sees Dr. Jarquin. EKG is normal sinus rhythm at 60 bpm with no acute ST or T wave changes, no bundle-branch blocks, normal intervals Hypertension. Blood pressure well controlled on current regimen. Hyperlipidemia. Last lipid panel within normal limits. Continue on current regimen. Knee pain. Referred to physical therapy plan he will call Dr. Ojeda office for intra-articular injection Eye screening. She sees her campus wellness coordinator regularly. Dental screening. She sees dentist regularly. Osteoporosis screening. he is up to date on BMD. Immunizations. She is up-to-date on her COVID, influenza vaccinations. His Marichuy is his healthcare proxy and is full code General health concerns discussed with patient. Scribe services used to formulate this note under HIPAA compliance and under [place] law mandated for scribe services. Patient aware of service. Verbal consent and written consent taken from the patient. Patient understands and verbalizes understanding of the scribes services and all questions answered regarding scribes services. Patient agrees to use of scribes services. 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 Plan is as follows Cardiomyopathy. He stable at this point and he is on beta-kellie and statins. His weight is stable. Atrial fibrillation. He is rate controlled and currently on Eliquis 5 mg 1 tablet twice a day Hyperlipidemia/hyp ertension. Blood pressure well controlled on Coreg 12.5 mg twice a day and he is on Lipitor 40 mg daily. Glaucoma. Stable on current regimen and follow up with campus wellness coordinator Right knee joint pain. Osteoarthritis and follow-up with orthopedic Screening blood work before next appointment 05/20/2024 Unspecified kyphosis, thoracic region (ICD-10 - M40.204) Mr. Hart is a 79-year-old gentleman with cardiomyopathy and f/u with Dr. Jarquin at [facility], hypertension, atrial fibrillation, hearing loss on hearing aids and glaucoma here for Medicare annual wellness visit. Plan is as follows: Cardiomyopathy/Atr ial fibrillation. He is rate-controlled and in sinus rhythm. He is on Eliquis 5 MG twice a day and he sees Dr. Jarquin. EKG is normal sinus rhythm at 60 bpm with no acute ST or T wave changes, no bundle-branch blocks, normal intervals Hypertension. Blood pressure well controlled on current regimen. Hyperlipidemia. Last lipid panel within normal limits. Continue on current regimen. Knee pain. Referred to physical therapy plan he will call Dr. Ojeda office for intra-articular injection Eye screening. She sees her campus wellness coordinator regularly. Dental screening. She sees dentist regularly. Osteoporosis screening. he is up to date on BMD. Immunizations. She is up-to-date on her COVID, influenza vaccinations. His Marichuy is his healthcare proxy and is full code General health concerns discussed with patient. Scribe services used to formulate this note under HIPAA compliance and under [place] law mandated for scribe services. Patient aware of service. Verbal consent and written consent taken from the patient. Patient understands and verbalizes understanding of the scribes services and all questions answered regarding scribes services. Patient agrees to use of scribes services. 05/20/2024 Mixed hyperlipidemia (ICD-10 - E78.2) Mr. Hart is a 79-year-old gentleman with cardiomyopathy and f/u with Dr. Jarquin at [facility], hypertension, atrial fibrillation, hearing loss on hearing aids and glaucoma here for Medicare annual wellness visit. Plan is as follows: Cardiomyopathy/Atr ial fibrillation. He is rate-controlled and in sinus rhythm. He is on Eliquis 5 MG twice a day and he sees Dr. Jarquin. EKG is normal sinus rhythm at 60 bpm with no acute ST or T wave changes, no bundle-branch blocks, normal intervals Hypertension. Blood pressure well controlled on current regimen. Hyperlipidemia. Last lipid panel within normal limits. Continue on current regimen. Knee pain. Referred to physical therapy plan he will call Dr. Ojeda office for intra-articular injection Eye screening. She sees her campus wellness coordinator regularly. Dental screening. She sees dentist regularly. Osteoporosis screening. he is up to date on BMD. Immunizations. She is up-to-date on her COVID, influenza vaccinations. His Marichuy is his healthcare proxy and is full code General health concerns discussed with patient. Scribe services used to formulate this note under HIPAA compliance and under [place] law mandated for scribe services. Patient aware of service. Verbal consent and written consent taken from the patient. Patient understands and verbalizes understanding of the scribes services and all questions answered regarding scribes services. Patient agrees to use of scribes services. Plan Of Treatment Pending Test Test Name Order Date Lipid Panel 04/21/2020 MICROALBUMIN,URINE 04/21/2020 BASIC METABOLIC PANEL 09/11/2019 BASIC METABOLIC PANEL 04/09/2019 HEMOGLOBIN A1C 04/09/2019 HEMOGLOBIN A1C 04/21/2020 POTASSIUM 04/09/2019 PROTIME PROFILE 07/08/2020 COMPREHENSIVE METABOLIC PANEL 04/21/2020 CBC 04/21/2020 PT/INR 05/12/2019 COVID-19 (NOVEL CORONAVIRUS), RNA PCR Future Test Test Name Order Date Albumin/Creatinine Ratio,Urine-[id number] Lipid Panel-[id number] 11/20/2024 Comp. Metabolic Panel [id number] 2024 Next Appt Details Provider Name:PICKERING Quinten JACLYN , 05/28/2025 10:00:00 AM, [address] [place] [address] [address], [place], [address], Insurance Providers Payer Name Payer Address Payer Phone Subscriber Number Group Number Insured Name Patient Relationship to Insured Coverage Start Date Coverage End Date Medicare [address] [place] [phone] [id number] Josep Fulton Self - patient is the insured 1 [employer] ([place] [address] [place] [phone] [id number] Josep Fulton Self - patient is the insured Medical (General) History Medical History History ICD Code Cardiopathy and see Dr Jarquin at [facility] [place] Hypertension Chronic atrial fibrillation Glaucoma Use Hearing aids 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 Alvarez 12/2021 Hospitalization History Reason Date(Month/Year)
== END 2025-02-11 11:35 | disposition home or self-care (01) ==
LOC: HO.HOS 11:12
PROVIDERS: PCP Hospitalist; Visit Provider Orthopaedic Surgery
DX: M17.11 Unilateral primary osteoarthritis, right knee (principal)
CPT/HCPCS: 99203; G2211

== ENCOUNTER → 2025-02-11 11:11 | Outpatient (BNVA) | payer MEDICARE, OTHER, SELFPAY | PROVIDERS: PCP Hospitalist; Visit Provider Orthopaedic Surgery | DX: M17.11 Unilateral primary osteoarthritis, right knee (principal) | CPT/HCPCS: 99202 ==

== ENCOUNTER 2025-03-16 10:08 | Outpatient (AMB) | payer MEDICARE, OTHER, SELFPAY ==
[2025-03-16 10:12] VITALS: BMI 24.9
--- NOTE | 2025-03-16 10:12 | A.OFFVIS_ITS ---
Vital Signs 03/16/25 10:12 Height 5 ft 8 in Weight 164 lb BMI 24.9 Intake Visit Reasons: Inj- Right knee Durolane inj Intake Note: Josep is a 80 year old male who presents with complaints of progressively worsening right knee pain. The patient describes his pain as sharp in nature. He has failed the last 3 months of conservative treatment. He has tried Tylenol which gives him minimal relief. He is not able to take anti-inflammatory medicines because he is on Eliquis. He wishes to hold off on surgery for as long as possible. He has had cortisone injections in the past which gave him minimal relief. Allergies No Known Allergies Allergy (Verified 03/16/25 10:12) Medication List - Last Reconciled 03/16/25 by Tee Mak MD apixaban (Eliquis) 5 mg PO BID atorvastatin 40 mg PO DAILY carvedilol 12.5 mg PO BID cholecalciferol (vitamin D3) (Vitamin D3) 50 mcg PO DAILY diclofenac sodium 1% 2 grams topical QID latanoprost 0.005% drps ophthalmic (eye) lisinopril 20 mg PO DAILY timolol maleate 0.5% drps ophthalmic (eye) COUNT INCLUDES THE [facility] Social History (Updated 09/03/24 @ 14:20 by MINNIE Hines) Current occupational status: retired Current occupation: rt handed Physical Exam Vital Signs: BMI result Body Mass Index 24.9 Const Other: Well-nourished well-developed very friendly male awake alert and oriented x3 in no acute distress Extrem Other: Bilateral lower extremity examination shows good capillary refill, no skin lesions noted, normal sensation light touch Right knee examination shows a minimal effusion, palpable crepitus with range of motion, pain with range motion, no instability Office Procedures AMB Joint Injection/Aspiration Joint Injection/Aspiration Primary Site: right knee Prep: site was prepped using aseptic technique Injected: 60 mg of (Durolane viscosupplementation) and 1% plain lidocaine Procedure: The patient tolerated the procedure well Coding 03885 - Large joint Procedure code (CPT) selection complete Results Reviewed Results Reviewed: X-rays of the patient's right knee taken previously show joint space narrowing, subchondral sclerosis, no acute bony abnormalities Assessment & Plan Assessment & Plan (1) Osteoarthritis of right knee: Code(s): M17.11 - Unilateral primary osteoarthritis, right knee Category: Medical Plan Mr. Hart presents with right knee osteoarthritis. The risks and benefits of a right knee Durolane viscosupplementation injection were discussed at length with the patient. The patient wished to proceed. He tolerated the injection well. He will continue with his home exercise program. He will contact me prior to his follow-up appointment in 3 months should any questions or concerns arise. Feel free to call me at any time should questions regarding his orthopedic management arise. I spent 20 minutes in reviewing the patient's records and imaging studies, seeing the patient and documenting in the medical record. Orders: Orders AMB Joint Injection/Aspiration Today M17.11 - Unilateral primary osteoarthritis, right knee Coding Level of Care Code Est Pt Level 3 (77907) Complex EM visit Add On G2211 Diagnoses Osteoarthritis of right knee M17.11 CPT Codes Coding - 85163 Large joint: 19048 - Large joint ([id number])
--- OUTSIDE RECORDS SUMMARY | 2025-03-16 11:08 | XMS_ITS | Data Portability ---
Author Organization [place] - [facility], Allergy Address [address] [place] [id number] Care Team Providers Care Dining Room Hostess Name Role Phone RAHEEL ANAYA Primary Care [...] Recorded Time Otorrhagi a of bilateral ears [id number] 06236 Active 2022 Otorrhagi a, bilateral ; Note: Date Diagnosed : 09/07/2023 9:46 AM (H92.23) Not Available [facility] 02:55:23 Abrasion of skin of right ear [id number] 122320 Active 2015 Abrasion of right ear, initial encounter ; Note: Date Diagnosed : 03/25/2016 11:04 AM (S00.411A ) Not Available [facility] 02:55:19 Impacted cerumen of bilateral ears [id number] 00516 Active 2023 TOD PAVON MD [address] [facility],[place] [address], [facility] [place], [address] , [place] [facility] 09:09:22 Problem Notes None recorded. Procedures Surgical History Date Name Laterality Status Provider Name and Address Organization Details Recorded Time extraction of cataract completed TOD PAVON MD [address] [facility],[address], [address], [facility] 09/11/2024 09:41:02 hernia repair completed [facility]AV[facility] MD [facility],[address], [address], [place] [facility] 09/11/2024 09:41:07 Appendectomy completed TOD PAVON MD [address] [facility],[address], [address], [facility] 09/11/2024 09:41:14 Imaging Results None recorded. Procedure [...] mg tablet 09/11 completed Medicati on ID: [id number] D uration Value: 90 Brand Name: warfarin [...] eye drops 09/11 completed Medicati on ID: [id number] D uration Value: 5 Prescri bed By [...] a day 09/11 completed Medicati on ID: [id number] D uration Value: 7 Brand Name: ofloxaci n Send Method: E-Prescr ibed Sub s Allowed: subs OK Medic ationGen ericName : ofloxaci n Not Available Not Available Not Available timolol maleate 0.5 % eye drops INSTILL 1 DROP INTO BOTH EYES ONCE A DAY active Not Available Not Available No t Available lisinopri l 40 mg tablet 09/11 completed Medicati on ID: [id number] D uration Value: 90 Brand Name: lisinopr [...] Updated DateTime 09/11/2024 172.72 cm 24.8 kg/m2 20117.56 g Leandra Doe [place] - [facility] 09/11/2024 08:55:59 Social History None recorded. Functional [...] SNOMED-CT Code Diagnosis ICD10 Code Diagnosis Note [id number] TOD PAVON MD [facility] [address] [address] 09/11/2024 08:49:31 09/11/2024 09:12:46 Impacted cerumen of bilateral ears [id number] 871563 H61.23 Cerumen removed bilaterall y and tolerated well. Follow-up in a year. Health Concerns Section Related Observation LastModified by Organization Detai ls LastModified Time None Recorded Concern Status LastModified by Organization Details LastModified Time None Recorded Advance Directives Directive None Recorded Payers Insurance Date Sequence Insurance Name Policy Number Policy Saha Covered Member ID Saha Member ID Guarantor Name 09/11/2024 1 [place]: [employer] Josep Hart [id number] Josep Hart 09/11/2024 2 [facility] INDEMNITY PLAN (MEDICARE SUPPLEMENT) [id number] Marichuy Hart [id number] Josep Hart Notes Date Note Type Note [...] arthritis in his knee. TOD PAVON MD [address] [place] [address], [phone], [facility] - [facility] 09/11/2024 09:42:09
--- OUTSIDE RECORDS SUMMARY | 2025-03-16 11:09 | XMS_ITS ---
Author Name [facility]ISP Organization Unknown Encounters Encounter Type Encounter Reason Primary Diagnosis Location Date Ambulatory [facility] 09/01/2024 Care Team Organization Name Specialty Phone Email Start Date End Da te [facility] 2024
--- OUTSIDE RECORDS SUMMARY | 2025-03-16 11:09 | XMS_ITS | Patient Health Record ---
Author Organization [facility] Address [address] [place] [address] Care Team Providers Care Work From Home Name Role Phone RAHEEL ANAYA Primary Care Provider [phone] GhanshyamyudiJuan ernst Unavailable [phone] Allergies No Known Allergies Results Component Value Reference Range Notes MICROALB/CREAT RATIO, RANDOM Reviewed date:05/13/2024 12:18:44 PM Interpretation: Performing Lab: Notes/Report: Original Ordering Provider: RAHEEL ANAYA MD [employer], a member of [address] [address] Engine Tester - Gilda Viveros MD MICROALBUMIN, RANDOM 12.0 0.0-29.0 mg/L MICROALB/CRE RATIO RANDOM 8.7 0.0-30.0 mg/G CREATININE, RANDOM URINE 137 LIPID PROFILE Reviewed date:05/13/2024 12:18:39 PM Interpretation: Performing Lab: Notes/Report: [employer], a member of [address] [address] [employer] - Gilda Viveros MD CHOLESTEROL 123 0-200 mg/dL TRIGLYCERIDES 42 0-150 mg/dL HDL CHOLESTEROL 62 >40 mg/dL LDL CALCULATED 53 0-100 mg/dL TC-HDLC RATIO 2.0 0-4.4 mg/dL GLYCOHEMOGLOBIN PROFILE Reviewed date:05/13/2024 04:34:30 PM Interpretation: Performing Lab: Notes/Report: Original Ordering Provider: RAHEEL ANAYA MD [employer], a member of [address] [address] Engine Tester - Gilda Viveros MD GLYCATED HEMOGLOBIN A1C [...] dose seasonal Unknown 08/27/2018 Admini laura at [facility] Influenza, high dose seasonal Unknown 08/27/2018 Admini laura at [facility] Social History Tobacco Use: Social History [...] Status W/U Status Risk Notes Problem Thrombophilia (449602926) Other thrombophilia (D68.69) Active confirmed Problem Mixed hyperlipidemia (695337279) Mixed hyperlipidemia (E78.2) Active confirmed Problem Glaucoma (11743058) Unspecified glaucoma (H40.9) Active confirmed Problem Cardiomyopathy (89059720) Cardiomyopathy, unspecified (I42.9) Active confirmed Problem Atrial fibrillation (43406918) Unspecified atrial fibrillation (I48.91) Active confirmed Problem Kyphosis deformity of thoracic spine (disorder) (746841457) Unspecified kyphosis, 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) Active confirmed Problem Age-related osteoporosis (568794695) Age-related osteoporosis without current pathological fracture (M81.0) Active confirmed Problem Impaired fasting glucose (689381936) Impaired fasting glucose (R73.01) Active confirmed Problem Adult health examination (607278478) Encounter for general adult medical examination without abnormal findings (Z00.00) Active confirmed Problem Essential hypertension (41396709) Essential (primary) hypertension (I10) Active confirmed Vital Signs Heart Rate 68 /min 11/20/2024 Temperature 96.3 degrees Fahrenheit 11/20/2024 Oximetry 95 % 11/20/2024 Blood pressure diastolic 84 mm Hg 11/20/2024 Height 5'8 in 11/20/2024 Blood pressure systolic 134 mm Hg 11/20/2024 Weight 168.7 lbs 11/20/2024 BMI 25.65 kg/m2 11/20/2024 Encounters Encounter Location Date Provider Diagnosis [address] [place] [address] 05/20/2024 [facility] Encounter for genera l adult medical examination without abnormal findings Z00.00 ; Essential (primary) hypertension I10 ; Unspecified atrial fibrillation I48.91 ; Cardiomyopathy, unspecified I42.9 ; Unspecified glaucoma H40.9 ; Unspecified kyphosis, thoracic region M40.204 and Mixed hyperlipidemia E78.[address] [place] [address] 11/05/2024 Juan Coeum Acute sinusitis, unspecified J01.[address] [place] [address] 11/20/2024 [facility] Cardiomyopathy, unspecified I42.9 ; Essential (primary) hypertension I10 ; Unspecified atrial fibrillation I48.91 and Mixed hyperlipidemia E78.[address] [place] [address] 08/12/[address] [address] 10/07/[address] [address] 11/05/2024 [facility] Assessments Encounter Date Diagnosis (ICD Code) Assessment Notes Treatment Notes Treatment Clinical Notes Section Notes 11/05/2024 Acute sinusitis, unspecified (ICD-10 - J01.90) Mr. Hart is a 79-year-old gentleman with cardiomyopathy and f/u with Dr. 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 Osteoarthritis and follow-up with orthopedic Screening blood work before next appointment 05/20/2024 Encounter for general adult medical examination without abnormal findings (ICD-10 - Z00.00) Mr. Hart is a 79-year-old gentleman with cardiomyopathy and f/u with Dr. Jarquin at [facility], hypertension, atrial fibrillation, hearing loss on [...] intra-articular injection Eye screening. She sees her it coordinator regularly. Dental screening. She sees dentist regularly. Osteoporosis screening. he is up to date on BMD. Immunizations. She is up-to-date on her COVID, influenza vaccinations. His Marichuy is his healthcare proxy and is full code General health concerns discussed with patient. Scribe services used to formulate this note under HIPAA compliance and under [place] law mandated for scribe services. Patient aware of service. Verbal consent and written consent taken from the patient. Patient understands and verbalizes understanding of the scribes services and all questions answered regarding scribes services. Patient agrees to use of scribes services. 05/20/2024 Essential (primary) hypertension (ICD-10 - I10) Mr. Hatr is a 79-year-old gentleman with cardiomyopathy and f/u with Dr. Jarquin at [facility], hypertension, atrial fibrillation, hearing loss on [...] intra-articular injection Eye screening. She sees her it coordinator regularly. Dental screening. She sees dentist regularly. Osteoporosis screening. he is up to date on BMD. Immunizations. She is up-to-date on her COVID, influenza vaccinations. His Marichuy is his healthcare proxy and is full code General health concerns discussed with patient. Scribe services used to formulate this note under HIPAA compliance and under [place] law mandated for scribe services. Patient aware of service. Verbal consent and written consent taken from the patient. Patient understands and verbalizes understanding of the scribes services and all questions answered regarding scribes services. Patient agrees to use of scribes services. 05/20/2024 Unspecified atrial fibrillation (ICD-10 - I48.91) Mr. Hart is a 79-year-old gentleman with cardiomyopathy and f/u with Dr. Jarquin at [facility], hypertension, atrial fibrillation, hearing loss on [...] intra-articular injection Eye screening. She sees her it coordinator regularly. Dental screening. She sees dentist regularly. Osteoporosis screening. he is up to date on BMD. Immunizations. She is up-to-date on her COVID, influenza vaccinations. His Marichuy is his healthcare proxy and is full code General health concerns discussed with patient. Scribe services used to formulate this note under HIPAA compliance and under [place] law mandated for scribe services. Patient aware of service. Verbal consent and written consent taken from the patient. Patient understands and verbalizes understanding of the scribes services and all questions answered regarding scribes services. Patient agrees to use of scribes services. 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 Osteoarthritis and follow-up with orthopedic Screening blood work before next appointment 05/20/2024 Cardiomyopathy, unspecified (ICD-10 - I42.9) Mr. Hart is a 79-year-old gentleman with cardiomyopathy and f/u with Dr. Jarquin at [facility], hypertension, atrial fibrillation, hearing loss on [...] intra-articular injection Eye screening. She sees her it coordinator regularly. Dental screening. She sees dentist regularly. Osteoporosis screening. he is up to date on BMD. Immunizations. She is up-to-date on her COVID, influenza vaccinations. His Marichuy is his healthcare proxy and is full code General health concerns discussed with patient. Scribe services used to formulate this note under HIPAA compliance and under [place] law mandated for scribe services. Patient aware of service. Verbal consent and written consent taken from the patient. Patient understands and verbalizes understanding of the scribes services and all questions answered regarding scribes services. Patient agrees to use of scribes services. 11/20/2024 Unspecified atrial fibrillation (ICD-10 - I48.91) Ernie is 79 [facility] and history of cardiomyopathy, atrial fibrillation, [...] on current regimen and follow up with it coordinator Right knee joint pain. Osteoarthritis and follow-up with orthopedic Screening blood work before next appointment 11/20/2024 Mixed hyperlipidemia (ICD-10 - E78.2) Ernie is 79 years old retired [employer] and history of cardiomyopathy, atrial fibrillation, [...] on current regimen and follow up with it coordinator Right knee joint pain. Osteoarthritis and follow-up with orthopedic Screening blood work before next appointment 05/20/2024 Unspecified glaucoma (ICD-10 - H40.9) Mr. Hart is a 79-year-old gentleman with cardiomyopathy and f/u with Dr. Jarquin at [facility], hypertension, atrial fibrillation, hearing loss on [...] intra-articular injection Eye screening. She sees her it coordinator regularly. Dental screening. She sees dentist regularly. Osteoporosis screening. he is up to date on BMD. Immunizations. She is up-to-date on her COVID, influenza vaccinations. His Marichuy is his healthcare proxy and is full code General health concerns discussed with patient. Scribe services used to formulate this note under HIPAA compliance and under [place] law mandated for scribe services. Patient aware of service. Verbal consent and written consent taken from the patient. Patient understands and verbalizes understanding of the scribes services and all questions answered regarding scribes services. Patient agrees to use of scribes services. 05/20/2024 Unspecified kyphosis, thoracic region (ICD-10 - M40.204) Mr. Hart is a 79-year-old gentleman with cardiomyopathy and f/u with Dr. Jarquin at [facility], hypertension, atrial fibrillation, hearing loss on [...] intra-articular injection Eye screening. She sees her it coordinator regularly. Dental screening. She sees dentist regularly. Osteoporosis screening. he is up to date on BMD. Immunizations. She is up-to-date on her COVID, influenza vaccinations. His Marichuy is his healthcare proxy and is full code General health concerns discussed with patient. Scribe services used to formulate this note under HIPAA compliance and under [place] law mandated for scribe services. Patient aware of service. Verbal consent and written consent taken from the patient. Patient understands and verbalizes understanding of the scribes services and all questions answered regarding scribes services. Patient agrees to use of scribes services. 05/20/2024 Mixed hyperlipidemia (ICD-10 - E78.2) Mr. Hart is a 79-year-old gentleman with cardiomyopathy and f/u with Dr. Jarquin at [facility], hypertension, atrial fibrillation, hearing loss on [...] intra-articular injection Eye screening. She sees her it coordinator regularly. Dental screening. She sees dentist regularly. Osteoporosis screening. he is up to date on BMD. Immunizations. She is up-to-date on her COVID, influenza vaccinations. His Marichuy is his healthcare proxy and is full code General health concerns discussed with patient. Scribe services used to formulate this note under HIPAA compliance and under [place] law mandated for scribe services. Patient aware [...] Future Test Test Name Order Date Albumin/Creatinine Ratio,Urine-[id number] Lipid Panel-[id number] 11/20/2024 Comp. Metabolic Panel [id number] 2024 Next Appt Details Provider Name:RAHEEL MANNTre , 05/28/2025 10:00:00 AM, [address] [place] [address] [address], [place], [address], Insurance Providers Payer Name Payer Address Payer Phone Subscriber Number Group Number Insured Name Patient Relationship to Insured Coverage Start Date Coverage End Date Medicare [address] 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 Alvarez 12/2021 Hospitalization History Reason Date(Month/Year)
--- OUTSIDE RECORDS SUMMARY | 2025-03-16 11:09 | XMS_ITS | Clinical Summary ---
Author Organization [facility] ity Address [address] [place] [address] Care Team Providers Care Hydropulper Operator Name Role Phone Unavailable Primary Care [...] - 2023-2 5 season) 2024 Influenza Vaccine (Season Ended) 2025 08/17/2022, 08/17/2020 HIB Vaccines Aged Out No longer [...]
== END 2025-03-16 10:31 | disposition home or self-care (01) ==
LOC: HO.HOS 10:09
PROVIDERS: PCP Hospitalist; Visit Provider Orthopaedic Surgery
DX: M17.11 Unilateral primary osteoarthritis, right knee (principal)
CPT/HCPCS: 20610; 99213

== ENCOUNTER → 2025-03-16 10:08 | Outpatient (BNVA) | payer MEDICARE, OTHER, SELFPAY | PROVIDERS: PCP Hospitalist; Visit Provider Orthopaedic Surgery | DX: M17.11 Unilateral primary osteoarthritis, right knee (principal) | CPT/HCPCS: 20610; 99212; J2003; J7318 ==

== ENCOUNTER 2025-06-16 11:15 | Outpatient (AMB) | payer MEDICARE, OTHER, SELFPAY ==
[2025-06-16 11:16] VITALS: BMI 24.9
--- NOTE | 2025-06-16 11:16 | MHC.OFFVIS ---
Vital Signs 06/16/25 11:16 Height 5 ft 8 in Weight 164 lb BMI 24.9 Intake Visit Reasons: Right knee pain Intake Note: Josep is a 80 year old male who presents with complaints of right knee pain. He describes his pain as sharp in nature. He has had cortisone injections in the past which gave him no relief. He has also had viscosupplementation injections which gave him fairly good relief. He has failed the last 3 months of conservative treatment which has included Tylenol and physical therapy exercises. He is not able to take anti-inflammatory medicines because he is on Eliquis. Wishes to hold off on surgery if at all possible. Accompanied by: Spouse Allergies No Known Allergies Allergy (Verified 06/16/25 11:17) Medication List - Last Reconciled 06/16/25 by Tee Mak MD apixaban (Eliquis) 5 mg PO BID atorvastatin 40 mg PO DAILY carvedilol 12.5 mg PO BID cholecalciferol (vitamin D3) (Vitamin D3) 50 mcg PO DAILY diclofenac sodium 1% 2 grams topical QID latanoprost 0.005% drps ophthalmic (eye) lisinopril 20 mg PO DAILY timolol maleate 0.5% drps ophthalmic (eye) [facility] Social History Current occupational status: retired Current occupation: rt handed Physical Exam Vital Signs: BMI result Body Mass Index 24.9 Extrem Other: Well-nourished well-developed very friendly male awake alert and oriented x3 in no acute distress Right knee examination shows a minimal effusion, palpable crepitus with range of motion, pain with range of motion, no instability Results Reviewed Results Reviewed: X-rays of the patient's right knee taken previously show joint space narrowing, subchondral sclerosis, no acute bony abnormalities Assessment & Plan Assessment & Plan (1) Right knee pain: Code(s): M25.561 - Pain in right knee Category: Medical (2) Osteoarthritis of right knee: Code(s): M17.11 - Unilateral primary osteoarthritis, right knee Category: Medical Plan Mr. Hart presents with right knee pain due to osteoarthritis. I had a lengthy discussion with the patient regarding the treatment options. He wishes to hold off on surgery if at all possible. I agree with this plan. I will see if the patient's insurance company will cover a another Durolane viscosupplementation injection. I will see the patient back once the injection is available. Feel free to call me at any time should questions regarding his orthopedic management arise. I spent 21 minutes in reviewing the patient's records and imaging studies, seeing the patient and documenting in the medical record. Coding Level of Care Code Est Pt Level 3 (44607) Complex EM visit Add On G2211 Diagnoses Right knee pain M25.561 Osteoarthritis of right knee M17.11
--- OUTSIDE RECORDS SUMMARY | 2025-06-16 12:14 | XMS_ITS | Patient Health Record ---
Author Organization [facility] Address [address] [place] [address] Care Team Providers Care Kettle Room Helper Name Role Phone ARHEEL ANAYA Primary Care Provider [phone] Juan Munguia Unavailable [phone] Allergies No Known Allergies Results Component Value Reference Range Notes BD BONE DENSITY DXA AXIAL SK ELETON Reviewed date:06/15/2025 04:54:56 PM Interpretation: Performing Lab: Notes/Report: Note See Note [facility], a member of [facility] Patient Name: JOSEP HUIZAR Date of : 1945 Reason for Exam: OSTEOPOROSIS Exam Date: 06/11/2025 [id number] EST Report Status: Final Ordering Provider: RAHEEL ANAYA PCP: RAHEEL ANAYA HISTORY: The patient is a 80-year-old male with clinical concern for metabolic bone disease. FINDINGS: Dual energ y x-ray absorptiometry of the lumbar spine and femurs is performed. The mean bone mineral density at L1-L4 is 1.057 gm/cm2 which is 87% of that of young normals and 94% of that of age matched controls. This yields a T-score of -1.4 and a Z-score of -0.6 which is diagnostic of osteopenia. The mean bone minera l density of the femurs bilaterally is 0.807 gm/cm2 which is 73% of that of young normals and 86% of that of age matched controls. This yields a T-score of -2.0 and a Z-score of -0.9 which is diagnostic of osteopenia. However, the T-score of the right femoral neck is -2.5 which is diagnostic of osteoporosis. IMPRESSION: 1. Osteoporosis. The re has been an increase of 5.1% in bone mineral density in the lumbar spine since the prior examination of 06/05/2023. There has been an increase of 0.6% in bone mineral density in the right femur and a decrease of 2.5% in bone mineral density in the left femur. 2. FRAX analysis yitara lds a 10-year probability of major osteoporotic fracture of (0% and a 10-year probability of hip fracture of 4.7%. Code 32112 -------- FINAL REPOR T -------- Dictated By: Kelton Camara Dictated Date: 06/14/2025 09:06 ET Assigned Physician: Kelton Camara Reviewed and Electronically Signed By: Kelton Camara Signed Date: 025 09:09 ET Workstation ID: [id number] Transcribed By: Self Edit Transcribed Date: 06/14/2025 09:07 ET MICROALBUMIN CREATININE URIN E RATIO Reviewed date:05/21/2025 02:17:55 PM Interpretation: Performing Lab: Notes/Report: Creatinine, Urine 94.0 Microalb, Ur 12.1 0.0-29.0 mg/L Microalb/Creat Ratio 13 <30 mg/g creat COMPREHENSIVE METABOLIC PANE L Reviewed date:05/21/2025 02:19:07 PM Interpretation: Performing Lab: Notes/Report: Sodium 138 133-145 mmol/L Potassium 4.2 3.5-5.5 mmol/L Chloride 106 96-110 mmol/L CO2 28 21-32 mmol/L Anion Gap 4 3-11 Glucose 96 70-100 mg/dL BUN 23 5-25 mg/dL Creatinine 0.83 0.70-1.30 mg/dL eGFR 89 >=60 mL/min/1.73m2 Calculati on based on the Chronic Kidney Disease Epidemiology Collaboration (CKD-EPI) equation refit without adjustment for race. BUN/Creatinine Ratio 27.7 Calcium 9.2 8.5-10.5 mg/dL AST (SGOT) 29 10-42 unit/L ALT (SGPT) 51 10-60 unit/L Alkaline Phosphatase 97 42-121 unit/L Total Protein 7.2 6.0-8.0 g/dL Albumin 4.1 3.2-5.0 g/dL Total Bilirubin 1.8 0.0-1.4 mg/dL LIPID PANEL WITH REFLEX TO D IRECT LDL Reviewed date:05/21/2025 02:19:12 PM Interpretation: Performing Lab: Notes/Report: Cholesterol 125 0-200 mg/dL Triglycerides 47 0-150 mg/dL HDL 61 >=40 mg/dL LDL Calculated 55 0-100 mg/dL VLDL Cholesterol Sukhdev 9.4 Non HDL Chol. (LDL+VLDL) 64 <145 mg/dL Chol/HDL Ratio 2.0 0.0-4.4 Medications Medication SIG (Take, Route, Frequency, Duration) Notes Start Date End Date Status Atorvastatin Calcium 40 MG 1 tablet Orally Once a day Active Ensure - as directed Orally One can daily Active Lisinopril 20 MG 1 tablet Orally Once a day; Duration: 30 day(s) 02/05/2018 Active Timolol Maleate 0.5 % 1 drop into affected eye Ophthalmic Once a day 02/05/2018 Active Carvedilol 12.5 MG 1 tablet Orally twice daily 02/05/2018 Active Latanoprost 0.005 % 1 drop into affected eye in the evening Ophthalmic Once a day 02/05/2018 Active Vitamin D3 50 MCG (1999) TAKE 1 CAPSULE BY MOUTH EVERY DAY; Duration: 90 Active Multi For Him Not-Ta kayode Eliquis 5 MG as directed Orally 1 tablet twice a day 01/03/2021 Active Amoxicillin 500 MG 1 capsule Orally every 8 hrs; Duration: 7 days 11/05/2024 Active Immunizations Vaccine Route Administration Date Status Comme nts COVID Moderna Unknown 12/02/2020 Administered COVID Moderna Unknown 12/30/2020 Administered COVID Moderna Unknown 09/13/2021 Administered COVID Moderna Unknown 05/31/2022 Administered COVID-19 Pfizer Unknown 10/14/2022 Administered Flu Unknown 09/16/2023 Administered Flu Unknown 08/31/2024 Administered Influenza, high dose seasonal Unknown 08/27/2018 Administered at [facility] Influenza, high dose seasonal Unknown 08/27/2018 Administered at [facility] Prevnar 20 IM Intramuscular 05/28/2025 Administered Social History Tobacco Use: Social History Observation [...] Status W/U Status Risk Notes Problem Thrombophilia (444788921) Other thrombophilia (D68.69) Active confirmed Problem Mixed hyperlipidemia (904186275) Mixed hyperlipidemia (E78.2) Active confirmed Problem Glaucoma (16447387) Unspecified glaucoma (H40.9) Active confirmed Problem Cardiomyopathy (24851873) Cardiomyopathy, unspecified (I42.9) Active confirmed Problem Atrial fibrillation (21504853) Unspecified atrial fibrillation (I48.91) Active confirmed Problem 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 Problem Kyphosis deformity of thoracic spine (disorder) (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) Unspecified kyphosis, 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) Active confirmed Problem Age-related osteoporosis (611111386) Age-related osteoporosis without current pathological fracture (M81.0) Active confirmed Problem Impaired fasting glucose (309888194) Impaired fasting glucose (R73.01) Active confirmed Problem Adult health examination (721818988) Encounter for general adult medical examination without abnormal findings (Z00.00) Active confirmed Problem Essential hypertension (30124794) Essential (primary) hypertension (I10) Active confirmed Vital Signs Heart Rate 78 /min 05/28/2025 Temperature 97.8 degrees Fahrenheit 05/28/2025 Oximetry 96 % 05/28/2025 Blood pressure diastolic 70 mm Hg 05/28/2025 Height 5'8 in 05/28/2025 Blood pressure systolic 128 mm Hg 05/28/2025 Weight 165.2 lbs 05/28/2025 BMI 25.12 kg/m2 05/28/2025 Encounters Encounter Location Date Provider Diagnosis [address] [address] 11/05/2024 Juan Munguia Acute sinusitis, unspecified J01.[address] [address] 11/20/2024 RAHEEL ANAYA Cardiomyopathy, unspecified I42.9 ; Essential (primary) hypertension I10 ; Unspecified atrial fibrillation I48.91 and Mixed hyperlipidemia E78.[address] [address] 05/28/2025 RAHEEL ANAYA Cardiomyopathy, unspecified I42.9 ; Annual wellness visit Z00.00 ; Essential (primary) hypertension I10 ; Unspecified atrial fibrillation I48.91 ; Mixed hyperlipidemia E78.2 and Other polyosteoarthritis M15.[address] [address] 08/12/[address] [address] 10/07/[address] [address] 11/05/[address] [address] 06/04/2025 RAHEEL ANAYA Age-related osteopor osis without current pathological fracture M81.0 Assessments Encounter Date Diagnosis (ICD Code) Assessment Notes Treatment Notes Treatment Clinical Notes Section Notes 11/05/2024 Acute sinusitis, unspecified (ICD-10 - J01.90) Mr. Huizar is a 79-year-old gentleman with cardiomyopathy and f/u with Dr. Jarquin at [facility], hypertension, atrial fibrillation, hearing loss on hearing aids and glaucoma here for sinus infections sxs. Plan as follows: Acute Sinusitis: - Worsening sxs over the course of 7 days. He admits to nasal congestion/purul ent mucus. PE is remarkable for tenderness along [...] 5 mg 1 tablet twice a day Hyperlipidemia/h ypertension. Blood pressure well controlled on Coreg 12.5 mg twice a day and he is on Lipitor 40 mg daily. Glaucoma. 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 Osteoarthritis and follow-up with orthopedic Screening blood work before next appointment 05/28/2025 Cardiomyopathy, unspecified (ICD-10 - I42.9) Ernie [facility] 79 [facility] and history of cardiomyopathy, atrial fibrillation, hyperlipidemia, glaucoma is here for annual physical Plan is as follows Cardiomyopathy. He stable at this point and he is on beta-kellie and statins. His weight is stable.He follows up with Dr. Jarquin on regular basis EKG is normal sinus rhythm at 63 bpm with no acute ST or T wave changes, no bundle-branch blocks, normal intervals. Atrial fibrillation. He is rate controlled And today in sinus rhythmand currently on Eliquis 5 mg 1 tablet twice a day Hyperlipidemia/h ypertension. Blood pressure well controlled on Coreg 12.5 mg twice a day and he is on Lipitor 40 mg daily. Glaucoma. 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 Osteoarthritis and follow-up with orthopedic Screening blood work reviewed and questions answered. He is up-to-date on age specific screening. He is full code and his is his healthcare proxy. 05/28/2025 Annual wellness visi t (ICD-10 - Z00.00) Ernie is 79 years old retired [employer] [facility] and history of cardiomyopathy, atrial fibrillation, hyperlipidemia, glaucoma is here for annual physical Plan is as follows Cardiomyopathy. He stable at this point and he is on beta-kellie and statins. His weight is stable.He follows up with Dr. Jarquin on regular basis EKG is normal sinus rhythm at 63 bpm with no acute ST or T wave changes, no bundle-branch blocks, normal intervals. Atrial fibrillation. He is rate controlled And today in sinus rhythmand currently on Eliquis 5 mg 1 tablet twice a day Hyperlipidemia/h ypertension. Blood pressure well controlled on Coreg 12.5 mg twice a day and he is on Lipitor 40 mg daily. Glaucoma. 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 Osteoarthritis and follow-up with orthopedic Screening blood work reviewed and questions answered. He is up-to-date on age specific screening. He is full code and his is his healthcare proxy. 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 He stable at this point and he is on beta-kellie and statins. His weight is stable.He follows up with Dr. Jarquin on regular basis EKG is normal sinus rhythm at 63 bpm with no acute ST or T wave changes, no bundle-branch blocks, normal intervals. Atrial fibrillation. He is rate controlled And today in sinus rhythmand currently on Eliquis 5 mg 1 tablet twice a day Hyperlipidemia/h ypertension. Blood pressure well controlled on Coreg 12.5 mg twice a day and he is on Lipitor 40 mg daily. Glaucoma. 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 Osteoarthritis and follow-up with orthopedic Screening blood work reviewed and questions answered. He is up-to-date on age specific screening. He is full code and his is his healthcare proxy. 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 Plan is as follows Cardiomyopathy. He stable at this point and he is on beta-kellie and statins. His weight is stable. Atrial fibrillation. He is rate controlled and currently on Eliquis 5 mg 1 tablet twice a day Hyperlipidemia/h ypertension. Blood pressure well controlled on Coreg 12.5 mg twice a day and he is on Lipitor 40 mg daily. Glaucoma. 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 Plan is as follows Cardiomyopathy. He stable at this point and he is on beta-kellie and statins. His weight is stable. Atrial fibrillation. He is rate controlled and currently on Eliquis 5 mg 1 tablet twice a day Hyperlipidemia/h ypertension. Blood pressure well controlled on Coreg 12.5 mg twice a day and he is on Lipitor 40 mg daily. Glaucoma. 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 Osteoarthritis and follow-up with orthopedic Screening blood work before next appointment 05/28/2025 Unspecified atrial fibrillation (ICD-10 - I48.91) Ernie is 79 [facility] and history of cardiomyopathy, atrial fibrillation, hyperlipidemia, glaucoma is here for annual physical Plan is as follows Cardiomyopathy. He stable at this point and he is on beta-kellie and statins. His weight is stable.He follows up with Dr. Jarquin on regular basis EKG is normal sinus rhythm at 63 bpm with no acute ST or T wave changes, no bundle-branch blocks, normal intervals. Atrial fibrillation. He is rate controlled And today in sinus rhythmand currently on Eliquis 5 mg 1 tablet twice a day Hyperlipidemia/h ypertension. Blood pressure well controlled on Coreg 12.5 mg twice a day and he is on Lipitor 40 mg daily. Glaucoma. 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 Osteoarthritis and follow-up with orthopedic Screening blood work reviewed and questions answered. He is up-to-date on age specific screening. He is full code and his is his healthcare proxy. 05/28/2025 Mixed hyperlipidemia (ICD-10 - E78.2) Ernie is 79 years old retired [employer] [employer] [facility] and history of cardiomyopathy, atrial fibrillation, hyperlipidemia, glaucoma is here for annual physical Plan is as follows Cardiomyopathy. He stable at this point and he is on beta-kellie and statins. His weight is stable.He follows up with Dr. Jarquin on regular basis EKG is normal sinus rhythm at 63 bpm with no acute ST or T wave changes, no bundle-branch blocks, normal intervals. Atrial fibrillation. He is rate controlled And today in sinus rhythmand currently on Eliquis 5 mg 1 tablet twice a day Hyperlipidemia/h ypertension. Blood pressure well controlled on Coreg 12.5 mg twice a day and he is on Lipitor 40 mg daily. Glaucoma. 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 Osteoarthritis and follow-up with orthopedic Screening blood work reviewed and questions answered. He is up-to-date on age specific screening. He is full code and his is his healthcare proxy. 11/20/2024 Mixed hyperlipidemia (ICD-10 - E78.2) Ernie [...] 5 mg 1 tablet twice a day Hyperlipidemia/h ypertension. Blood pressure well controlled on Coreg 12.5 mg twice a day and he is on Lipitor 40 mg daily. Glaucoma. 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 He stable at this point and he is on beta-kellie and statins. His weight is stable.He follows up with Dr. Jarquin on regular basis EKG is normal sinus rhythm at 63 bpm with no acute ST or T wave changes, no bundle-branch blocks, normal intervals. Atrial fibrillation. He is rate controlled And today in sinus rhythmand currently on Eliquis 5 mg 1 tablet twice a day Hyperlipidemia/h ypertension. Blood pressure well controlled on Coreg 12.5 mg twice a day and he is on Lipitor 40 mg daily. Glaucoma. 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 Osteoarthritis and follow-up with orthopedic Screening blood work reviewed and questions answered. He is up-to-date on age specific screening. He is full code and his is his healthcare proxy. Plan Of Treatment Pending Test Test Name Order Date Lipid Panel 04/21/2020 Bone Density 06/04/2025 MICROALBUMIN,URINE 04/21/2020 BASIC METABOLIC PANEL 09/11/2019 BASIC METABOLIC PANEL 04/09/2019 HEMOGLOBIN A1C 04/09/2019 HEMOGLOBIN A1C 04/21/2020 POTASSIUM 04/09/2019 PROTIME PROFILE 07/08/2020 COMPREHENSIVE METABOLIC PANEL 04/21/2020 CBC 04/21/2020 PT/INR 05/12/2019 COVID-19 (NOVEL CORONAVIRUS), RNA PCR Future Test Test Name Order Date Albumin/Creatinine Ratio,Urine-[id number] Lipid Panel-[id number] 11/20/2024 Comp. Metabolic Panel [id number] 2024 Next Appt Details Provider Name:RAHEEL Shipley JACLYN , 11/26/2025 11:45:00 AM, [address] [place] [address], [place], [address], Insurance Providers Payer Name Payer Address Payer Phone Subscriber Number Group Number Insured Name Patient Relationship to Insured Coverage Start Date Coverage End Date Medicare [address] [place] [address] [id number] Josep Fulton Self - patient is the insured 1 [employer] [facility] [address] [place] [address] [id number] Josep Fulton Self - patient is the insured Medical (General) History Medical History History ICD Code Cardiopathy and see Dr Jarquin at [facility] Hypertension Chronic atrial fibrillation Glaucoma Use Hearing aids 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 Alvarez 12/2021 Hospitalization History Reason Date(Month/Year)
--- OUTSIDE RECORDS SUMMARY | 2025-06-16 12:14 | XMS_ITS | Clinical Summary ---
Author Organization [facility] Address [address] [place] [address] Phone Care Team Providers Care Wet Process Miller Head Name Role Phone Vanita Thomas MD Primary Care Provider [phone] Encounters Date Type Department Care Team Description 06/11/2025 12:50 PM EDT - 06/11/2025 11:59 PM EDT Hospital Encounter [facility] Bone Density [address] [place] [id number] Age-related osteoporosis without current pathological fracture Discharge Disposition: Home or Self Care from Last 3 Months Social History Tobacco Use Types Packs/Day Years Used Date Smoking Tobacco: Never Assessed Sex and Gender Information Value Date Recorded Sex Assigned at Not on file Legal Sex Male 10:20 AM EST Gender Identity Not on file Sexual Orientation Not on file Plan of Treatment Health Maintenance Due Date Last Done Comments DTaP,Tdap,and Td Vaccines (1 - Tdap) 1964 Zoster Vaccines (1 of 2) 01/23/1996 Falls Risk Assessment 10/07/2022 Hepatitis C Screening 10/07/2022 Social Influencers of Health Screening 10/07/2022 Medicare Annual Wellness Visit 05/13/2024 05/13/2023 Depression Screening 11/04/2024 COVID-19 Vaccine ( season) 2025 07/16/2024, 07/29/2023, 10/14/2022, Additional history exists Influenza Vaccine (#1) 2025 , 09/16/2023, 08/17/2022, Additional history exists Hypertension/CHF/CAD Annual BMP Blood Test 05/21/2026 05/21/2025 Cholesterol Screening (Lipid Panel) 05/21/2030 05/21/2025 RSV Immunization Adult Patients Completed 11/07/2023 Pneumococcal Vaccine: 50+ Years Completed 05/28/2025 HIB Vaccines Aged Out No longer eligi [...] 20 months Aged Out No longer eligible based on patient's age to complete this topic Varicella Vaccines Aged Out No longer eligible based on patient's age to complete this topic Procedures Procedure Name Priority Date/Time Associated Diagnosis Comments BD BONE DENSITY DXA AXIAL SKELETON Routine 06/11/2025 1:15 PM EDT Age-related osteoporosis without current pathological fracture MICROALBUMIN CREATININE URINE RATIO Routine 05/21/2025 8:37 AM EDT Primary cardiomyopathy (CMS/HCC V24, CMS/HCC V28) COMPREHENSIVE METABOLIC PANEL Routine 05/21/2025 8:32 AM EDT Primary cardiomyopathy (CMS/HCC V24, CMS/HCC V28) LIPID PANEL WITH REFLEX TO DIRECT LDL Routine 05/21/2025 8:32 AM EDT Primary cardiomyopathy (CMS/HCC V24, CMS/HCC V28) Abnormal finding of blood chemistry, unspecified from Last 3 Months Results * BD Bone Density DXA Axial Skeleton (06/11/2025 1:15 PM EDT) Anatomical Region Laterality Modality Wrist, Hip, L-spine Bone Densito metry 06/14/2025 9:06 AM EDT Impressions 06/14/2025 9:09 AM EDT 1. Osteoporosis. There has been an increase of 5.1% in bone mineral density in the lumbar spine since the prior examination of 06/05/2023. There has been an increase of 0.6% in bone mineral density in the right femur and a decrease of 2.5% in bone mineral density in the left femur. 2. FRAX analysis yields a 10-year probability of major osteoporotic fracture of (0% and a 10-year probability of hip fracture of 4.7%. Code 74192 -------- FINAL REPORT -------- Dictated By: Kelton Camara Dictated Date: 06/14/2025 09:06 ET Assigned Physician: Kelton Camara Reviewed and Electronically Signed By: Kelton Camara Signed Date: 06/14/2025 09:09 ET Workstation ID: [id number] Transcribed By: Self Edit Transcribed Date: 06/14/2025 09:07 ET Narrative 06/14/2025 9:09 AM EDT HISTORY: The patient is a 80-year-old male with clinical concern for metabolic bone disease. FINDINGS: Dual energy x-ray absorptiometry of the lumbar spine and femurs is performed. The mean bone mineral density at L1-L4 is 1.057 gm/cm2 which is 87% of that of young normals and 94% of that of age matched controls. This yields a T-score of -1.4 and a Z-score of -0.6 which is diagnostic of osteopenia. The mean bone mineral density of the femurs bilaterally is 0.807 gm/cm2 which is 73% of that of young normals and 86% of that of age matched controls. This yields a T-score of -2.0 and a Z-score of -0.9 which is diagnostic of osteopenia. However, the T-score of the right femoral neck is -2.5 which is diagnostic of osteoporosis. Procedure Note Kelton Camara MD - 06/14/2025 HISTORY: The patient is a 80-year-old male with clinical concern formetabolic bone disease. FINDINGS: Dual energy x-ray absorptiometry of the lumbar spine and femursis performed. The mean bone mineral density at L1-L4 is 1.057 gm/cm2 whichis 87% of that of young normals and 94% of that of age matched controls.This yields a T-score of -1.4 and a Z-score of -0.6 which is diagnostic ofosteopenia. The mean bone mineral density of the femurs bilaterally is 0.807 gm/zq9lxkfc is 73% of that of young normals and 86% of that of age matchedcontrols. This yields a T-score of -2.0 and a Z-score of -0.9 which isdiagnostic of osteopenia. However, the T-score of the right femoral neckis -2.5 which is diagnostic of osteoporosis. IMPRESSION: 1. Osteoporosis. There has been an increase of 5.1% in bone mineraldensity in the lumbar spine since the prior examination of 06/05/2023.There has been an increase of 0.6% in bone mineral density in the rightfemur and a decrease of 2.5% in bone mineral density in the left femur. 2. FRAX analysis yields a 10-year probability of major osteoporoticfracture of (0% and a 10-year probability of hip fracture of 4.7%. Code 64504 -------- FINAL REPORT -------- Dictated By: Kelton Camara Dictated Date: 06/14/2025 09:06 ET Assigned Physician: Kelton Camara Reviewed and Electronically Signed By: Kelton Camara Signed Date: 06/14/2025 09:09 ET Workstation ID: [id number] Transcribed By: Self Edit Transcribed Date: 06/14/2025 09:07 ET us Vanita Thomas MD [facility] DXA PROCEDURES Final Resul t * Microalbumin creatinine urine ratio (05/21/2025 8:37 AM EDT) Creatinine, Urine 94.0 mg/dL LAB CHEMISTRY METHOD 05/21/2025 10:04 AM EDT [facility] Microalb, Ur 12.1 0.0 - 29.0 mg/L LAB CHEMISTRY METHOD 05/21/2025 10:04 AM T [facility] Microalb/Creat Ratio 13 <30 mg/g creat LAB CHEMISTRY METHOD 05/21/2025 10:04 AM [facility] Urine Urine specimen obtained by clean catch procedure / Unknown Non-blood Collection / Unknown 05/21/2025 8:37 AM EDT 05/21/2025 9:28 AM EDT us Vanita Thomas MD LAB URINE ORDERABLES Final Res ult [facility] [address] [place] [address], [place] [phone] * Lipid panel with reflex to direct LDL (05/21/2025 8:32 AM EDT) Cholesterol 125 0 - 200 mg/dL LAB CHEMISTRY METHOD 05/21/2025 10:07 AM [facility] Triglycerides 47 0 - 150 mg/dL LAB CHEMISTRY METHOD 05/21/2025 10:07 AM [facility] HDL 61 >=40 mg/dL LAB CHEMISTRY METHOD 05/21/2025 10:07 AM [facility] LDL Calculated 55 0 - 100 mg/dL LAB CHEMISTRY METHOD 05/21/2025 10:07 AM [facility] VLDL Cholesterol Sukhdev 9.4 mg/dL LAB CHEMISTRY METHOD 05/21/2025 10:07 AM [facility] Non HDL Chol. (LDL+VLDL) 64 <145 mg/dL LAB CHEMISTRY METHOD 05/21/2025 10:07 AM [facility] Chol/HDL Ratio 2.0 0.0 - 4.4 LAB CHEMISTRY METHOD 05/21/2025 10:07 AM [facility] Blood Venous blood specimen / Unknown Venipuncture / Unknown 05/21/2025 8:32 AM EDT 05/21/2025 9:28 AM EDT us Vanita Thomas MD LAB BLOOD ORDERABLES Final Res ult [facility] [address] [place] [address], [place] [phone] * (ABNORMAL) Comprehensive metabolic panel (05/21/2025 8:32 AM EDT) Sodium 138 133 - 145 mmol/L LAB CHEMISTRY METHOD 05/21/2025 10:06 AM [facility] Potassium 4.2 3.5 - 5.5 mmol/L LAB CHEMISTRY METHOD 05/21/2025 10:06 AM [facility] Chloride 106 96 - 110 mmol/L LAB CHEMISTRY METHOD 05/21/2025 10:06 AM [facility] CO2 28 21 - 32 mmol/L LAB CHEMISTRY METHOD 05/21/2025 10:06 AM [facility] Anion Gap 4 3 - 11 LAB CHEMISTRY METHOD 05/21/2025 10:06 AM [facility] Glucose 96 70 - 100 mg/dL LAB CHEMISTRY METHOD 05/21/2025 10:06 AM [facility] BUN 23 5 - 25 mg/dL LAB CHEMISTRY METHOD 05/21/2025 10:06 AM [facility] Creatinine 0.83 0.70 - 1.30 mg/dL LAB CHEMISTRY METHOD 05/21/2025 10:06 AM [facility] eGFR 89 >=60 mL/min/1. 73m2 LAB CHEMISTRY METHOD 05/21/2025 10:06 AM [facility] Comment:Calculation based on the Chronic Kidney Disease Epidemiology Collaboration (CKD-EPI) equation refit without adjustment for race. BUN/Creatinine Ratio 27.7 LAB CHEMISTRY METHOD 05/21/2025 10:06 AM EDT [facility] Calcium 9.2 8.5 - 10.5 mg/dL LAB CHEMISTRY METHOD 05/21/2025 10:06 AM [facility] AST (SGOT) 29 10 - 42 unit/L LAB CHEMISTRY METHOD 05/21/2025 10:06 AM [facility] ALT (SGPT) 51 10 - 60 unit/L LAB CHEMISTRY METHOD 05/21/2025 10:06 AM [facility] Alkaline Phosphatase 97 42 - 121 unit/L LAB CHEMISTRY METHOD 05/21/2025 10:06 AM [facility] Total Protein 7.2 6.0 - 8.0 g/dL LAB CHEMISTRY METHOD 05/21/2025 10:06 AM [facility] Albumin 4.1 3.2 - 5.0 g/dL LAB CHEMISTRY METHOD 05/21/2025 10:06 AM [facility] Total Bilirubin 1.8(H) 0.0 - 1.4 mg/dL LAB CHEMISTRY METHOD 05/21/2025 10:06 AM [facility] Blood Venous blood specimen / Unknown Venipuncture / Unknown 05/21/2025 8:32 AM EDT 05/21/2025 9:28 AM EDT Vanita Thomas MD LAB BLOOD ORDERABLES Final Res ult [facility] [address] [place] [address], from Last 3 Months Insurance MEDICARE [employer] Care Teams Wet Process Miller Head Relationship Specialty Start Date End Date Vanita Thomas MD [address] [place] [phone] PCP - General Internal Medicine 05/21/25
--- OUTSIDE RECORDS SUMMARY | 2025-06-16 12:14 | XMS_ITS | Patient Health Record ---
Author Organization [facility] Address [address] [place] [address] Care Team Providers Care Gold Leaf Layer Name Role Phone Yanira(inactive) Brokos WEIR Primary Care Provider U laurieThom Quick Jr Unavailable [phone] Reason For Referral No Information Medications Medication SIG (Take, Route, Frequency, Duration) Notes Start Date End Date Status Latanoprost 0.005 % PLACE 1 DROP INTO SURESH TH EYES AT BEDTIME Ophthalmic for 25 Active Multi Vitamin/Minerals Orally 03/04/2014 Active Colyte with Flavor Packs 240 GM As directed Orally Over the specified time. for 1 day(s) 03/04/2014 Active Carvedilol 12.5 MG TAKE 1 TABLET BY COY TH TWICE A DAY Oral for 90 Active Warfarin Sodium 2.5 MG TAKE 3 TABLETS BY MOUTH EVERY EVENING 5 TIMES PER WEEK & 2 TABLETS 1 TIME A WEEK Oral for 90 Active Lisinopril 40 MG TAKE 1 TABLET BY COY TH EVERY DAY Oral for 90 Active Problems Problem Type SNOMED Code ICD Code Onset Dates Problem Status W/U Status Risk Notes Problem 63594009 Irritable bowel syndrome (564.1) Active confirmed Problem 319597159 Colon cancer screening (V76.51) Active confirmed Plan Of Treatment Future Test Test Name Order Date COLONOSCOPY 03/04/2014 Insurance Providers Payer Name Payer Address Payer Phone Subscriber Number Group Number Insured Name Patient Relationship to Insured Coverage Start Date Coverage End Date MEDICARE OF [address] [address] [place] [address] [id number] BESSIE BAY Self - patient is the insured [facility] [employer] [place] [address] [place] [address] [id number] BESSIE BAY Self - patient is the insured Medical (General) History Medical History History ICD Code atrial flutter cardiomyopathy hypertension Denies PR,DM,CVA,Lung disease,renal dise ase Surgical History Surgery Date(Month/Year) appendectomy hernia repair 2004
--- OUTSIDE RECORDS SUMMARY | 2025-06-16 12:14 | XMS_ITS | Clinical Summary ---
Author Organization [facility] Address [address] [place] [address] Phone Care Team Providers Care Forensic Ballistics Expert Name Role Phone Vanita Thomas MD Primary Care Provider [phone] Allergies No known active allergies Medications latanoprost (XALATAN) 0.005 % ophthalmic solution Place 1 drop into the right eye every evening. 07/02/2012 Active timolol (TIMOPTIC) 0.5 % ophthalmic solution Place 1 drop into each eye 2 (two) times a day. Active FA/MV,CA,IRON,M IN/LYCOPENE/LUT (MULTIVITAL ORAL) Take by mouth. Active carvedilol (COREG) 12.5 MG tabletIndicatio ns:Chronic systolic congestive heart failure Take 1 tablet (12.5 mg total) by mouth 2 (two) times a day. 180 tablet 3 03/04/2020 Active lisinopril (PRINIVIL,ZESTR IL) 40 MG tabletIndicatio ns:Chronic systolic congestive heart failure Take 1 tablet (40 mg total) by mouth daily. 90 tablet 3 03/04/2020 Active warfarin (COUMADIN) 2.5 MG tabletIndicatio ns:Paroxysmal atrial fibrillation,Pa roxysmal atrial flutter Take 3 tablets (7.5 mg total) by mouth daily. 270 tablet 3 03/11/2020 Active Active Problems Problem Noted Date Diagnosed Date Hypertension 02/12/2018 Heart failure 08/03/2015 Paroxysmal atrial flutter 01/07/2013 Overview (12/25/2014): Paroxysmal atrial flutter Hypercholesterolemia 01/07/2013 Overview (12/25/2014): Hypercholesterolemia Congestive heart failure 12/21/2008 Overview (12/25/2014): Congestive heart failure Social History Tobacco Use Types Packs/Day Years Used Date Smoking Tobacco: Never Smokeless Tobacco: Never Tobacco Cessation:Counseling Given: No Education Answer Date Recorded Are you interested in more education? Not on marycruz e 03/10/2023 Are you concerned about learning? Not on file 03/10/2023 No 03/10/2023 No 03/10/2023 Digital Access Answer Date Recorded No 03/31/2023 No 03/31/2023 No 03/31/2023 Reliable internet access at home? Not on file 03/31/2023 Device with a working camera? Not on file Sex and Gender Information Value Date Recorded Sex Assigned at Male 03/09/2020 1:46 PM EDT Legal Sex Male 6:59 PM EST Gender Identity Male 03/09/2020 1:46 PM EDT Sexual Orientation Straight 03/09/2020 1: 46 PM EDT Last Filed Vital Signs Vital Sign Reading Time Taken Comments Blood Pressure 132/76 09/02/2019 1:38 PM EDT Pulse 65 09/02/2019 1:38 PM EDT Temperature - - Respiratory Rate - - Oxygen Saturation - - Inhaled Oxygen Concentration - - Weight 77.2 kg (170 lb 4.8 oz) 09/02/2019 1:38 P M EDT w shoes Height 175.3 cm (5' 9 ) 01/26/2015 1:44 PM EDT Body Mass Index 25.15 01/26/2015 1:44 PM EDT Plan of Treatment Health Maintenance Due Date Last Done Comments Adult Td,Tdap Booster 1945 BLOOD PRESSURE 1945 LIPID PANEL 1945 HEPATITIS C SCREENING 01/23/1964 PNEUMOCOCCAL VACCINES (50+ years) (1 of 2 - PCV) 1965 ZOSTER VACCINES (1 of 2) 01/23/1996 DEPRESSION SCREENING 02/19/2020 02/18/2019, 08/03/2015 RSV VACCINE (1 - 1-dose 75+ series) 2021 CREATININE LEVEL 10/21/2021 10/21/2020 POTASSIUM LEVEL 10/21/2021 10/21/2020 COVID-19 VACCINE (3 - 2023-2 5 season) 2024 12/30/2020, 12/02/2020 SMOKING STATUS SCREENING (On ce After 26 Yrs) Completed 09/02/2019 HEPATITIS A VACCINES Aged Out No long er eligible based on patient's age to complete this topic HIB VACCINES Aged Out No longer eligi ble based on patient's age to complete this topic MENINGOCOCCAL VACCINES (ACWY) Aged Out No longer eligible based on patient's age to complete this topic MENINGOCOCCAL VACCINES (B) Aged Out N o longer eligible based on patient's age to complete this topic Medical Devices Not on file Insurance MEDICARE PART A & B [facility] MEDICARE SUPPLEMENT MEDICARE PART A & B Member Subscriber Plan / Payer ( fective 2011-Present) Name:Josep Huizar Member ID:[id number] Relation to Subscriber:Self Name:Josep Huizar Subscriber ID:[id number] Payer ID:[id number] Group ID:Not on file Type:Medicare Address: [employer] [address] [place] [address] [employer] MEDICARE SUPPLEMENT MEDICARE PART A & B Member Subscriber Plan / Payer ( fective 2011-Present) Name:Josep Huizar Member ID:[id number] Relation to Subscriber:Self Name:Josep Huizar Subscriber ID:[id number] Payer ID:[id number] Group ID:Not on file Type:Medicare Address: [employer] [address] [place] [phone] [employer] MEDICARE SUPPLEMENT JEFFERY MENESES MEDICARE PART A & B [facility] MEDICARE SUPPLEMENT JEFFERY MENESES MEDICARE PART A & B [id number] [place] [address] [employer] MEDICARE SUPPLEMENT MEDICARE PART A & B [id number] [place] [address] [employer] MEDICARE SUPPLEMENT JEFFERY MENESES MEDICARE PART A & B [facility] MEDICARE SUPPLEMENT JEFFERY MENESES MEDICARE PART A & B [facility] [employer] MEDICARE SUPPLEMENT MEDICARE PART A & B [facility] [employer] MEDICARE SUPPLEMENT Care Teams Forensic Ballistics Expert Relationship Specialty Start Date End Date Vanita Thomas MD [address] [facility] [address] [place] [address] PCP - General Internal Medicine 08/14/17 Additional Source Comments The information contained in this document represents components of the legal health record. It is not the complete legal health record.[facility]
== END 2025-06-16 11:35 | disposition home or self-care (01) ==
LOC: HO.HOS 11:15
PROVIDERS: PCP Hospitalist; Visit Provider Orthopaedic Surgery
DX: M25.561 Pain in right knee (principal); M17.11 Unilateral primary osteoarthritis, right knee
CPT/HCPCS: 99213; G2211

== ENCOUNTER → 2025-06-16 11:15 | Outpatient (BNVA) | payer MEDICARE, OTHER, SELFPAY | PROVIDERS: PCP Hospitalist; Visit Provider Orthopaedic Surgery | DX: M17.11 Unilateral primary osteoarthritis, right knee (principal) | CPT/HCPCS: 99212 ==

== ENCOUNTER 2025-09-29 14:33 | Outpatient (AMB) | payer MEDICARE, OTHER, SELFPAY ==
--- NOTE | 2025-09-29 14:42 | MHC.OFFVIS ---
Vital Signs 09/29/25 14:43 Height 5 ft 8 in Weight 165 lb BMI 25.1 Intake Visit Reasons: injection-rt knee durolane Intake Note: Josep is a 80 year old male who presents with complaints of right knee pain. He describes his pain as sharp in nature. He has failed the last 3 months of conservative treatment. Wishes to hold off on total knee replacement surgery if at all possible. Allergies No Known Allergies Allergy (Verified 09/29/25 14:43) Medication List - Last Reconciled 09/29/25 by Tee Mak MD apixaban (Eliquis) 5 mg PO BID atorvastatin 40 mg PO DAILY carvedilol 12.5 mg PO BID cholecalciferol (vitamin D3) (Vitamin D3) 50 mcg PO DAILY diclofenac sodium 1% 2 grams topical QID latanoprost 0.005% drps ophthalmic (eye) lisinopril 20 mg PO DAILY timolol maleate 0.5% drps ophthalmic (eye) [facility] Medical History Right knee pain Osteoarthritis of right knee Social History Current occupational status: retired Current occupation: rt handed Physical Exam Vital Signs: BMI result Body Mass Index 25.1 Const Other: Well-nourished well-developed very friendly male awake alert and oriented x3 in no acute distress Extrem Other: Right knee examination shows a minimal effusion, palpable crepitus with range of motion, pain with range of motion, no instability Office Procedures AMB Joint Injection/Aspiration Joint Injection/Aspiration Primary Site: Right Knee Prep: site was prepped using aseptic technique Injected: 60 mg of, Durolane, with 3 mL of and 1% plain Lidocaine Procedure: The patient tolerated the procedure well Coding 97857 - Large joint Procedure code (CPT) selection complete Results Reviewed Results Reviewed: X-rays of the patient's right knee taken previously show joint space narrowing, subchondral sclerosis, no acute bony abnormalities Assessment & Plan Assessment & Plan (1) Osteoarthritis of right knee: Code(s): M17.11 - Unilateral primary osteoarthritis, right knee Category: Medical Plan Josep presents with right knee pain due to osteoarthritis. I had a lengthy discussion with the patient regarding the treatment options. The risks and benefits of a right knee Durolane viscosupplementation injection were discussed at length with the patient. The patient wished to proceed. He tolerated the injection well. He will continue with his home exercise program. He will contact me prior to his follow-up appointment in 3 months should any questions or concerns arise. Feel free to call me at any time should questions regarding his orthopedic management arise. I spent 20 minutes in reviewing the patient's records and imaging studies, seeing the patient and documenting in the medical record. Orders: Orders AMB Joint Injection/Aspiration Today M17.11 - Unilateral primary osteoarthritis, right knee Coding Level of Care Code Est Pt Level 3 (78806) Complex visit Add On G2211 Diagnoses Osteoarthritis of right knee M17.11 CPT Codes Coding - 89851 Large joint: 89140 - Large joint ([id number])
[2025-09-29 14:43] VITALS: BMI 25.1
--- OUTSIDE RECORDS SUMMARY | 2025-09-29 17:23 | XMS_ITS ---
Author Name [facility] Organization Unknown Encounters Encounter Type Encounter Reason Primary Diagnosis Location Date Ambulatory [facility] 09/01/2024 Care Team Organization Name Specialty Phone Email Start Date End Da te [facility] 2024 [facility] 05/21/2024 [facility] 07/11/2023
--- OUTSIDE RECORDS SUMMARY | 2025-09-29 17:23 | XMS_ITS | Data Portability ---
Author Organization [place] - [facility], Allergy Address [address] [address] Care Team Providers Care Congressional Representative Name Role Phone RAHEEL ANAYA Primary Care Provider Assessment Encounter Date Assessment Date Assessment LastModified by Organization Details LastModified Time 09/15/2025 09/15/2025 80-year-old male presents for cerumen removal. Cerumen removed bilaterally. TMs normal to inspection. Follow-up in 1 year. bisi Not available 09/15/2025 12:36:38 Plan of Treatment Reminders Order Date Submit Date Provider Last Modified By Organization Details Last Modified Time Details Appointments Establish ed 15 2025 11:15A M PRISCILA MCCLURE PA-C Not available Not available Not available Lab None recorded. Referral None recorded. Procedures None recorded. Surgeries None recorded. Imaging None recorded. Medication Orders None recorded. Patient TargetsNo targets recorded. Patient InstructionsNo instructions recorded. Reason for Referral None Reported. Problems Name Problem SNOMED Code Status Onset Date Resolution Date Notes Provider Name and Address Organization Details Recorded Time Abrasion of skin of right ear [id number] Active 2015 Abrasion of right ear, initial encounter ; Note: Date Diagnosed : 03/25/2016 11:04 AM (S00.411A ) Not Available [facility] 4 02:55:19 Otorrhagi a of bilateral ears 56224041554 16617 Active 2022 Otorrhagi a, bilateral ; Note: Date Diagnosed : 09/07/2023 9:46 AM (H92.23) Not Available [facility] 4 02:55:23 Impacted cerumen of bilateral ears 18249259097 62861 Active 2023 TOD PAVON MD 100 [facility],[address] [address], [place], [address] , [facility] 09:09:22 Problem Notes None recorded. Procedures Surgical History Date Name Laterality Status Provider Name and Address Organization Details Recorded Time 09/15/20 25 Cerumen removal without microscope bilat completed PRISCILA MCCLURE PA-C 100 [facility], [address], [facility] 09/15/2025 12:36:28 extraction of cataract completed TOD PAVON MD 100 [facility] [place],[address] [address], [place], [address], [facility] [place] [facility] 09/11/2024 09:41:02 hernia repair completed TOD PAVON MD 100 [facility] [place], [address], [facility] 09/11/2024 09:41:07 Appendectomy completed TOD PAVON MD 100 [facility] [place],[facility], [place], [address], [facility] 09/11/2024 09:41:14 Imaging Results None recorded. Procedure Notes None recorded. Medical Equipment None Reported. Allergies No known drug allergies Medications Name Sig Start Date Stop Date Status Note LastModified by Organization Details LastModified Time amoxicill in 500 mg capsule TAKE 1 CAPSULE BY MOUTH EVERY 8 HOURS FOR 7 DAYS 09/12 completed Not Available Not Available Not Available latanopro st 0.005 % eye drops INSTILL [...] Not Available Not Available No t Available alprazola m 1 mg tablet TAKE 1 TAB 1 HOUR PRIOR TO SURGERY. active Not Available Not Available No t Available lisinopri l 20 mg tablet TAKE 1 TABLET BY MOUTH EVERY DAY active Not Available Not Available No t Available warfarin 2.5 mg tablet 09/11 completed Medicati on ID: [id number] D uration Value: 90 Brand Name: warfarin Send Method: E-Prescr ibed Sub s Allowed: subs OK Speci al Instruct ion: TAKE 3 TABLETS BY MOUTH FOR 5 DAYS/WEE K AND 2 TABLETS 1 DAY/WEEK . *1 D AY/WEEK NO DOSE TO BE TAKEN* Rani Marte Name: warfarin Not Available Not Available Not Available Ciloxan 0.3 % eye drops 09/11 completed Medicati on ID: [id number] D uration Value: 5 Prescri bed By Name: Tod fonseca MD Brand Name: Ciloxan Send Method: E-Prescr ibed Sub s Allowed: subs OK Speci al Instruct ion: Instill 4 drops twice a day into the affected ear Medi cationGe nericNam e: Ciloxan Not Available Not Available Not Available amoxicill in 500 mg tablet TAKE 1 TABLET 3 TIMES A DAY FOR 7 DAYS, START 2 DAYS PRIOR TO SURGERY active Not Available Not Available No t Available ofloxacin 0.3 % ear drops Apply 5 drop into both ears twice a day 09/11 completed Medicati on ID: [id number] D uration Value: 7 Brand Name: ofloxaci n Send Method: E-Prescr ibed Sub s Allowed: subs OK Medic ationGen ericName : ofloxaci n Not Available Not Available Not Available timolol maleate 0.5 % eye drops INSTILL 1 DROP INTO BOTH EYES ONCE A DAY active Not Available Not Available No t Available lisinopri l 40 mg tablet 09/11 completed Medicati on ID: [id number] D uration Value: 90 Brand Name: lisinopr il Send Method: E-Prescr ibed Sub s Allowed: subs OK Speci al Instruct ion: TAKE 1 TABLET BY MOUTH EVERY DAY Medi cationGe nericNam e: lisinopr il Not Available Not Available Not Available cholecalc iferol (vitamin D3) 50 mcg (2,000 unit) capsule TAKE 1 [...] Updated DateTime 09/11/2024 172.72 cm 24.8 kg/m2 06729.56 g Leandra Doe [place] - [facility] 09/11/2024 08:55:59 Date Recorded Body weight Body mass index (BMI) Body height Systolic And Diastolic Provider Name and Address Organization Details Last Updated DateTime 09/15/2025 49722.56 g 24.8 kg/m2 172.72 cm 164/82 mm[Hg] Shaylee Vignesh [place] - [facility] 09/15/2025 11:36:36 Social History None recorded. Functional Status None recorded. Mental Status None recorded. Family History Nothing Reported Notes:Problems with anesthes ia: negative. Cancer:. Pertinent negatives: lung cancer, thyroid cancer, unknown type of cancer. Ears: Hearing loss after age 20 - father and sister(s). Cardiovascular: Heart disease in a male, diagnosed at unknown age - father. Heart disease in a female, diagnosed at unknown age - mother. Hypertension - father and brother(s). Respiratory:. Pertinent negatives: asthma. Neurologic:. Pertinent negatives: stroke. Endocrine:. Pertinent negatives: diabetes (age at onset unspecified). Hematologic/Lymphatic:. Pertinent negatives: bleeding or blood clotting problems. Medical History Condition Response Arthritis Y Hypertension Y Glaucoma Y Past Encounters Encounter ID Performer Location Encounter Start Date Encounter Closed Date Diagnosis/Indication Diagnosis SNOMED-CT Code Diagnosis ICD10 Code Diagnosis IMO Codes Diagnosis Note [id number] TOD PAVON MD [facility] [address] [address] 09/11/2024 08:49:31 09/11/2024 09:12:46 Impacted cerumen of bilateral ears [id number] 422608 H61.23 Cerumen removed bilaterall y and tolerated well. Follow-up in a year. [id number] PRISCILA MCCLURE PA-C [facility] [address] [address] 09/15/2025 11:25:41 09/15/2025 11:44:55 Impacted cerumen of bilateral ears [id number] 915912 H61.23 Health Concerns Section Related Observation LastModified by Organization Detai ls LastModified Time None Recorded Concern Status LastModified by Organization Details LastModified Time None Recorded Advance Directives Directive None Recorded Payers Insurance Date Sequence Insurance Name Policy Number Policy Saha Covered Member ID Saha Member ID Guarantor Name 09/15/2025 1 MED[place]: [facility] Josep Shipley Hailey [id number] Josep Hart 09/15/2025 2 [facility] INDEMNITY PLAN (MEDICARE SUPPLEMENT) [id number] Marichuy Saravia Hailey [id number] Josep Hart Notes Date Note Type Note Provider Name and Address Organization Details Recorded Time 09/11/2024 text/html ROS as noted in the [facility] 79-year-old male presents today for follow-up. He was seen about a year ago after traumatic ear cleaning. He has done well since then. He does not feel any particular blockage. He does wear amplification for his severe hearing loss. Since his last visit, he did have a injection for some arthritis in his knee. TOD PAVON MD [address] [place] [address], [address], [place] - [facility] 09/11/2024 09:42:09 09/15/2025 text/html ROS as noted in the [facility] 80-year-old male with bilateral hearing aids presents for yearly cerumen removal. No acute issues since his last visit. FREDO MENSAH MD [address] [place] [address], [address], [place] - [facility] 09/15/2025 14:08:59
--- OUTSIDE RECORDS SUMMARY | 2025-09-29 17:23 | XMS_ITS | Encounter Summary ---
Author Organization [facility] Address [address] [place] [address] Phone Care Team Providers Care Consumer Educator Name Role Phone Vanita Thomas MD Primary Care Provider Encounter Details Date Type Department Care Team (Late st Contact Info) Description 08/14/2017 Transcribe Orders [facility] EKG [address] [place] [address] [email or web address] Social History Tobacco Use Types Packs/Day Years Used Date Smoking Tobacco: Never Smokeless Tobacco: Never Sex and Gender Information Value Date Recorded Sex Assigned at Male 03/09/2020 1:46 PM EDT Legal Sex Male 6:59 PM EST Gender Identity Male 03/09/2020 1:46 PM EDT Sexual Orientation Straight 03/09/2020 1: 46 PM EDT documented as of this encounter Plan of Treatment Not on file documented as of this encounter Procedures Procedure Name Priority Date/Time Associated Diagnosis Comments ECG 12-LEAD Routine 08/14/2017 1:32 PM EDT documented in this encounter Results * ECG 12 lead-Heart Failure-Unspecified (08/14/2017 1:32 PM EDT) Systolic Blood Pressure 134 mmHg [facility] Diastolic Blood Pressure 60 mmHg [facility] Ventricular Rate EKG/MIN 62 BPM [facility] Atrial Rate 62 BPM [facility] MO Interval 172 ms [facility] QRS Duration 100 ms [facility] QT Interval 422 ms [facility] QTC Interval 428 ms [facility] P [place] 69 degrees [facility] R Wave [place] 36 degrees [facility] T Wave [place] 55 degrees [facility] 08/14/2017 1:32 PM EDT Narrative BRADLY - 08/20/2017 8:37 AM EDT Normal sinus rhythm Normal ECG When compared with ECG of 13-FEB-2017 13:40, Premature atrial complexes are no longer Present us Raj Sorenson MD ECG ORDERABLES Final Res ult BRADLY documented in this encounter Visit Diagnoses Not on filedocumented in this encounter Additional Health Concerns Assessment Noted Time PHQ-9 Depression Total Score: 0 08/03/20 15 1:17 PM EDT PHQ-2 Depression Total Score: 0 08/14/20 17 1:36 PM EDT documented as of this encounter Care Teams Consumer Educator Relationship Specialty Start Date End Date Vanita Thomas MD [address] [facility] [address] [place] [address] PCP - General Internal Medicine 08/14/17 documented as of this encounter Additional Source Comments The information contained in this document represents components of the legal health record. It is not the complete legal health record.[facility]
--- OUTSIDE RECORDS SUMMARY | 2025-09-29 17:23 | XMS_ITS | Clinical Summary ---
Author Organization [facility] Address [address] [place] [address] Phone Care Team Providers Care Manager Operations Name Role Phone Vanita Thomas MD Primary Care Provider Allergies No known active allergies Medications latanoprost [...] LEVEL 10/21/2021 10/21/2020 POTASSIUM LEVEL 10/21/2021 10/21/2020 INFLUENZA VACCINE (#1) 2025 08/17/2020 COVID-19 VACCINE (2024-2 6 season) 2025 12/30/2020, 12/02/2020 SMOKING STATUS SCREENING (On ce After 26 Yrs) Completed 09/02/2019 HEPATITIS A VACCINES Aged Out No long er eligible based on patient's age to complete this topic HIB VACCINES Aged Out No longer eligi ble based on patient's age to complete this topic IPV VACCINES Aged Out No longer eligi ble based on patient's age to complete this topic MENINGOCOCCAL VACCINES (ACWY) Aged Out No longer eligible based on patient's age to complete this topic MENINGOCOCCAL VACCINES (B) Aged Out N o longer eligible based on patient's age to complete this topic Medical Devices Not on file Insurance MEDICARE PART A & B [facility] MEDIC[facility] SUPPLEMENT [facility] Address: [address] [place] [phone] [place] [address] MEDICARE PART A & B [facility] [place] [address] MEDICARE PART A & B [facility] MEDICARE SUPPLEMENT MEDICARE PART A & B [facility] MEDICARE SUPPLEMENT MEDICARE PART A & B [employer] MED[employer]ARE SUPPLEMENT MEDICARE PART A & B [employer] MEDICARE SUPPLEMENT JEFFERY MENESES MEDICARE PART A & B [facility] MEDICARE SUPPLEMENT JEFFERY MENESES01 MEDICARE PART A & B [id number] [place] [address] [employer] MEDICARE SUPPLEMENT MEDICARE PART A & [id number] MEDIC[facility] SUPPLEMENT Care Teams Manager Operations Relationship Specialty Start Date End Date Vanita Thomas MD [address] [address] PCP - General Internal Medicine 08/14/17 Additional Source Comments The information contained in this document represents components of the legal health record. It is not the complete legal health record.[facility]
--- OUTSIDE RECORDS SUMMARY | 2025-09-29 17:23 | XMS_ITS | Continuity of Care Document ---
Author Organization [place] - [facility], [facility] Address [address] [place] [address] Care Team Providers Care Electrician Third Name Role Phone RAHEEL ANAYA Primary Care Provider [phone] Assessment Encounter Date Assessment Date Assessment LastModified [...] Time Abrasion of skin of right ear [id number] 024672 Active 2015 Abrasion of right ear, initial encounter ; Note: Date Diagnosed : 03/25/2016 11:04 AM (S00.411A ) Not Available [facility] 02:55:19 Otorrhagi a of bilateral ears 28407599211 12531 Active 2022 Otorrhagi a, bilateral ; Note: Date Diagnosed : 09/07/2023 9:46 AM (H92.23) Not Available [facility] 02:55:23 Impacted cerumen of bilateral ears 56911442386 27568 Active 2023 TOD PAVON MD 100 [facility],[address] [address], [place], [address] , [facility] 09:09:22 Problem Notes None recorded. Procedures Surgical History Date Name Laterality Status Provider Name and Address Organization Details Recorded Time 09/15/20 25 Cerumen removal without microscope bilat completed PRISCILA MCCLURE PA-C 100 [facility],[address], [address], [facility] [place] 09/15/2025 12:36:28 extraction of cataract completed TOD PAVON MD [address] [place] [address],[address], [address], [facility] [place] 09/11/2024 09:41:02 hernia repair completed TOD PAVON MD [address] [place] [address],[address], [address], [facility] [place] 09/11/2024 09:41:07 Appendectomy completed TOD PAVON MD 100 [facility],[address], [address], [facility] 09/11/2024 09:41:14 Imaging Results None recorded. Procedure [...] mg tablet 09/11 completed Medicati on ID: [id number] D uration Value: 90 Brand Name: warfarin Send Method: E-Prescr ibed Sub s Allowed: subs OK Speci al Instruct ion: TAKE 3 TABLETS BY MOUTH FOR 5 DAYS/WEE K AND 2 TABLETS 1 DAY/WEEK . *1 D AY/WEEK NO DOSE TO BE TAKEN* Rani Marte Name: warfarin Not Available Not Available Not Available Ciloxan 0.3 % eye drops 09/11 completed Medicati on ID: [id number] D uration Value: 5 Prescri bed By [...] a day 09/11 completed Medicati on ID: [id number] D uration Value: 7 Brand Name: ofloxaci n Send Method: E-Prescr ibed Sub s Allowed: subs OK Medic ationGen ericName : ofloxaci n Not Available Not Available Not Available timolol maleate 0.5 % eye drops INSTILL 1 DROP INTO BOTH EYES ONCE A DAY active Not Available Not Available No t Available lisinopri l 40 mg tablet 09/11 completed Medicati on ID: [id number] D uration Value: 90 Brand Name: lisinopr [...] Available Not Available Vitals Date Recorded Body weight Body mass index (BMI) Body height Systolic And Diastolic Provider Name and Address Organization Details Last Updated DateTime 09/15/2025 34058.56 g 24.8 kg/m2 172.72 cm 164/82 mm[Hg] Shaylee Medellin [place] - [facility] 09/15/2025 11:36:36 Social History None recorded. Functional [...] ICD10 Code Diagnosis IMO Codes Diagnosis Note [id number] PRISCILA MCCLURE PA-C [facility] [address] [address] 09/15/2025 11:25:41 09/15/2025 11:44:55 Impacted cerumen of bilateral ears [id number] 422554 H61.23 Health Concerns Section Related Observation LastModified by Organization Detai ls LastModified Time None Recorded Concern Status LastModified by Organization Details LastModified Time None Recorded Payers Encounter Date Sequence Insurance Name Policy Number Policy Saha Covered Member ID Saha Member ID Guarantor Name 09/15/2025 1 [place] B-[place] [employer] Josep Hart [id number] Josep Hart 09/15/2025 2 [facility] INDEMNITY PLAN (MEDICARE SUPPLEMENT) [id number] Marichuy Hart [id number] Josep Hart Notes Date Note Type Note Provider Name and Address Organization Details Recorded Time 09/15/2025 text/html ROS as noted in the HPI 80-year-old male with bilateral hearing aids presents for yearly cerumen removal. No acute issues since his last visit. FREDO MENSAH MD [address] [place] [address], [address], [facility] - [facility] 09/15/2025 14:08:59
--- OUTSIDE RECORDS SUMMARY | 2025-09-29 17:23 | XMS_ITS | Encounter Summary ---
Author Organization [facility] Address [address] [place] [address] Phone Care Team Providers Care Remote Advisor Name Role Phone Vanita Thomas MD Primary Care Provider [phone] Reason for Visit * Reason Comments Medication Refill Encounter Details Date Type Department Care Team (Late st Contact Info) Description 04/15/2018 Refill [facility] [address] [place] [id number] Raj Sorenson MD [email or web address] [email or web address] Refill Social History Tobacco Use Types Packs/Day Years [...] on file documented as of this encounter Visit Diagnoses Diagnosis Heart failure Unspecified heart failure documented in this encounter Additional Health Concerns Assessment Noted Time PHQ-9 Depression Total Score: 0 08/03/20 15 1:17 PM EDT PHQ-2 Depression Total Score: 0 02/13/20 18 1:51 PM EDT documented as of this encounter Care Teams Remote Advisor Relationship Specialty Start Date End Date Vanita Thomas MD [address] [facility] [address] [place] [address] PCP - General Internal Medicine 08/14/17 documented as of this encounter Additional Source Comments The information contained in this document represents components of the legal health record. It is not the complete legal health record.[facility]
== END 2025-09-29 15:21 | disposition home or self-care (01) ==
LOC: HO.HOS 14:34
PROVIDERS: PCP Hospitalist; Visit Provider Orthopaedic Surgery
DX: M17.11 Unilateral primary osteoarthritis, right knee (principal)
CPT/HCPCS: 20610

== ENCOUNTER → 2025-09-29 14:33 | Outpatient (BNVA) | payer MEDICARE, OTHER, SELFPAY | PROVIDERS: PCP Hospitalist; Visit Provider Orthopaedic Surgery | DX: M17.11 Unilateral primary osteoarthritis, right knee (principal) | CPT/HCPCS: 20610; J2003; J7318 ==